=== PATIENT | male | born 1985 | race Caucasian/White ===

== ENCOUNTER 2019-05-02 10:36 | Emergency (ER) | payer SELFPAY ==
[2019-05-02 10:40] VITALS: BP 146/79; PULSE 104; RESP 16; TEMP 36.4; O2SAT 98; BMI 27.3
[2019-05-02 10:47] VITALS: O2SAT 98
--- NOTE | 2019-05-02 11:03 | W.ED.SKABFB ---
Documented by User: TIM Hernandez 05/02/19 15:01 HPI - Skin/Abscess/Foreign Bdy General: Chief complaint: Skin/Abscess/Foreign Body Stated complaint: possible abscess Time Seen by Provider: 05/02/19 10:44 History of Present Illness: HPI narrative: Patient is a 33-year-old male who comes in with possible abscess. Patient does have a history of MRSA. Skin abscess started around 2 days ago. It is in his right axillary region. It is tender to the touch and also painful when doing some arm movements. Red bump on right axillary And also has some swollen mass underneath. Denies any fever, chills, chest pain, shortness of breath, abdominal pain, nausea, vomiting, bladder or bowel symptoms. Associated symptoms: Deny chills, fever(s), nausea or vomiting Review of Systems General: Reports: 10 or more systems reviewed and unremarkable except in HPI and below Const: Denies: fever, chills or fatigue Eyes: Denies: change in vision or eye discomfort ENMT: Denies: throat pain, painful swallowing, nasal discharge or nasal congestion Card: Denies: chest pain, palpitations, edema, swelling of feet/ankles, shortness of breath on exertion or shortness of breath when lying down Resp: Denies: shortness of breath, productive cough or non-productive cough GI: Denies: abdominal pain, nausea, vomiting, diarrhea, constipation or blood in stool : Denies: flank pain, difficulty urinating, painful urination or blood in urine Musc: Denies: neck pain, back pain or extremity swelling Skin/Breast: Reports: new lesion; Denies: rash Neuro: Denies: headache, numbness in extremities or weakness in extremities Carlos/Lymph: Reports: tender lymph nodes [facility] ED PFSH: Social History Smoking and tobacco status: never smoked Physical Exam Const: COMMON NORMALS: oriented x3 HENMT: COMMON NORMALS: normocephalic HEAD & SCALP: normocephalic MOUTH: oral and palatal mucosa normal THROAT: posterior oropharynx normal and uvula midline Neck/C-Spine: COMMON NORMALS: supple GENERAL: Yes normal visual inspection Lymph: LYMPHATIC: lymphadenopathy (swollen and tender right axillary 2 cm) Resp: COMMON NORMALS: normal respiratory effort, no retractions, no use of accessory muscles and clear to auscultation bilaterally AUSCULTATION: clear to auscultation bilaterally Cardio: COMMON NORMALS: regular rate, regular rhythm, S1 normal heart sound, S2 normal heart sound, no gallops, no clicks, no murmurs and peripheral pulses 2+ throughout RATE: regular rate RHYTHM: regular rhythm HEART SOUNDS: S1 normal and S2 normal PERIPHERAL PULSES: pulses 2+ throughout GI: COMMON NORMALS: normal to inspection, nondistended, normoactive bowel sounds, soft to palpation, non-tender and no masses PALPATION: Yes soft : COMMON NORMALS: Yes no CVA tenderness BLADDER/KIDNEY EXAM: Yes no CVA tenderness Back/Pelvis: COMMON NORMALS: no CVA tenderness Neuro: COMMON NORMALS: oriented x3 and moves all extremities Skin: LESIONS: lesion noted (Erythema nodule (Boil) about 1cm in diameter.-no drainage or white head) Course ED course: Patient is a 33-year-old male who comes into the ED with possible skin abscess on right axillary. After exam patient appears to have folliculitis with some lymphadenopathy in the right axillary region as well. He has a history of MRSA. No white head or drainage currently from lesion. I discussed with the patient 2 options for treatment. First option is to drain lesions and then take antibiotics and steroids or second option is to try antibiotic and steroid and warm compresses to see if lesion will improve. Patient agreed with trying the second option first, so he is being discharged with a prescription for Bactrim and prednisone. I told him to apply warm compresses multiple times throughout the day and to return to the ED if after taking antibiotic and steroids for a couple days and symptoms do not improve or worsen. I also told him to follow up with urgent care or come back to the ED in 5-7 days no matter what to reevaluate lesion and possible infection. Patient understood and agreed with plan. Vital Signs: Vital signs: Vital Signs Temperature 97.5 F L 05/02/19 10:40 Pulse Rate 102 H 05/02/19 11:38 Respiratory Rate 18 05/02/19 11:38 Blood Pressure 135/76 05/02/19 11:38 Pulse Oximetry 96 05/02/19 11:38 Discharge Plan Discharge Patient Disposition: Home, Self-Care Clinical Impression: Folliculitis of right axilla Condition: Stable Prescriptions: New Bactrim DS 800-160 mg tablet 1 tab PO DAILY 7 Days Qty: 7 RF: 0 prednisone 50 mg tablet 50 mg PO DAILY 5 Days Qty: 5 RF: 0 No Action Multiple Vitamins Tablet 1 tab PO DAILY PRN (Reason: unknown) RF: 0 Discharge Orders: Discharge Order (Routine); Ordered 05/02/19 Ordered By: Alvarado Soriano Discharge Diet: Regular Discharge Activity: Resume usual activity Patient Instructions: Cellulitis (ED), Furunculosis and Carbunculosis (ED) Activity Restrictions/Additional Instructions: Follow-up urgent care or return to the ED in 5-7 days for reevaluation. If symptoms and pain worsened after a couple days of treatment on antibiotic and steroid please return to the ED for reevaluation. Full course of antibiotic and steroid as prescribed. Apply warm compresses on. Discharge Date/Time: 05/02/19 11:39 Coding Level of Care Code ED Reverse Engineer for Chg Fwd Exam Comprehensive Documented by User: Darshan Koenig DO 05/02/19 15:23 HPI - Skin/Abscess/Foreign Bdy General: Chief complaint: Skin/Abscess/Foreign Body Stated complaint: possible abscess Time Seen by Provider: 05/02/19 10:44 [facility] ED PFSH: Social History Smoking and tobacco status: never smoked Course ED course: I supervised care provided to Jose Irvinhn by the [employer]OR[employer]/PA. Vital Signs: Vital signs: Vital Signs Temperature 97.5 F L 05/02/19 10:40 Pulse Rate 102 H 05/02/19 11:38 Respiratory Rate 18 05/02/19 11:38 Blood Pressure 135/76 05/02/19 11:38 Pulse Oximetry 96 05/02/19 11:38 Discharge Plan Discharge Patient Disposition: Home, Self-Care Clinical Impression: Folliculitis of right axilla Condition: Stable Prescriptions: New Bactrim DS 800-160 mg tablet 1 tab PO DAILY 7 Days Qty: 7 RF: 0 prednisone 50 mg tablet 50 mg PO DAILY 5 Days Qty: 5 RF: 0 No Action Multiple Vitamins Tablet 1 tab PO DAILY PRN (Reason: unknown) RF: 0 Discharge Orders: Discharge Order (Routine); Ordered 05/02/19 Ordered By: Alvarado Soriano Discharge Diet: Regular Discharge Activity: Resume usual activity Patient Instructions: Cellulitis (ED), Furunculosis and Carbunculosis (ED) Activity Restrictions/Additional Instructions: Follow-up urgent care or return to the ED in 5-7 days for reevaluation. If symptoms and pain worsened after a couple days of treatment on antibiotic and steroid please return to the ED for reevaluation. Full course of antibiotic and steroid as prescribed. Apply warm compresses on. Discharge Date/Time: 05/02/19 11:39 Coding Level of Care Code ED Reverse Engineer for Meka [place] Exam Comprehensive
[2019-05-02] MEDS: HYDROcodone-acetaminophen 7.5-325 mg Tablet 1 TAB PO (11:09)
[2019-05-02 11:38] VITALS: BP 135/76; PULSE 102; RESP 18; O2SAT 96
== END 2019-05-02 11:39 | disposition home or self-care (01) ==
PROVIDERS: Emergency Provider Physician Assistant
DX: L73.9 Follicular disorder, unspecified (principal); Z86.14 Personal history of Methicillin resistant Staphylococcus aureus infection
CPT/HCPCS: 99282

== ENCOUNTER 2020-08-18 22:14 | Emergency (ER) | payer OTHER, SELFPAY ==
--- NOTE | 2020-08-18 22:20 | XRR_ITS ---
PROCEDURE INFORMATION: Exam: XR Left Ankle Exam date and time: 08/18/2020 10:34 PM Age: 34 years old Clinical indication: Patient HX: Left ankle throbbing pain, rolled it at work stepping off ledge. TECHNIQUE: Imaging protocol: XR Left ankle. Views: 3 or more views. COMPARISON: No relevant prior studies available. FINDINGS: Bones/joints: Normal. Soft tissues: Soft tissue swelling. XR/XR ankle LT min 3V* [id number] IMPRESSION: No acute osseous abnormality
[2020-08-18 22:47] VITALS: BP 142/87; PULSE 88; RESP 15; TEMP 36.8; O2SAT 98; BMI 26.6
--- NOTE | 2020-08-18 23:21 | ED_ITS ---
HPI - Extremity Problem General: Chief complaint: Extremity Injury, Lower Stated complaint: L ankle swollen, bruised, pain Time Seen by Provider: 08/18/20 23:16 History of Present Illness: HPI Narrative: Patient is a 34-year-old male comes to the ED with left ankle injury. Patient says he was at work and carrying some boxes and stepped down from some steps and rolled his left ankle. Patient says he took some ibuprofen just prior to arrival to help with pain. He says his left ankle hurts whenever he puts weight on it. He has some swelling in left ankle as well. Patient has a history of ankle sprains. Associated symptoms: Deny chest pain, fever(s) or rash Review of Systems Const: Denies: fever(s), chills or fatigue Eyes: Denies: change in vision or eye discomfort ENMT: Denies: throat pain, odynophagia, nasal discharge or nasal congestion Card: Denies: chest pain, palpitations, edema, swelling of feet/ankles, dyspnea on exertion or orthopnea Resp: Denies: dyspnea, productive cough or non-productive cough GI: Denies: abdominal pain, nausea, vomiting, diarrhea, constipation or hematochezia : Denies: flank pain, difficulty urinating, dysuria or hematuria Musc: Reports: extremity pain (Left ankle) and extremity swelling (Left ankle); Denies: neck pain or back pain Skin/Breast: Denies: rash or new lesions Neuro: Denies: headache(s), numbness in extremities or weakness in extremities PFS ED PFSH: Social History Smoking and tobacco status: never smoked Physical Exam Const: COMMON NORMALS: no acute distress, patient oriented x3, healthy appearing and alert GENERAL APPEARANCE: cooperative and comfortable HENMT: COMMON NORMALS: normocephalic HEAD & SCALP: normocephalic MOUTH: Normal oral and palatal mucosa present THROAT: posterior oropharynx normal and uvula midline Neck/C-Spine: COMMON NORMALS: supple GENERAL: Yes normal visual inspection Resp: COMMON NORMALS: normal respiratory effort, No retractions, No use of accessory muscles and clear to auscultation bilaterally AUSCULTATION: clear to auscultation bilaterally Cardio: COMMON NORMALS: regular rate, regular rhythm, S1 normal heart sound present, S2 normal heart sound present, No gallops present (Cardio), No clicks present (Cardio), No murmurs present (Cardio) and Peripheral pulses 2+ throughout RATE: regular rate RHYTHM: regular rhythm HEART SOUNDS: S1 normal heart sound present and S2 normal heart sound present PERIPHERAL PULSES: Peripheral pulses 2+ throughout GI: COMMON NORMALS: Normal to inspection, nondistended, normoactive bowel sounds present, Soft to palpation, non-tender and no masses PALPATION: Yes Soft to palpation : COMMON NORMALS: Yes no CVA tenderness BLADDER/KIDNEY EXAM: Yes no CVA tenderness Back/Pelvis: COMMON NORMALS: no CVA tenderness Extremity: GENERAL: Yes normal exam except as noted LEFT LOWER EXTREMITY: Yes ankle joint Left ankle: Yes inspection (No visible deformity. Mild swelling. No ecchymosis noted.), Yes palpation (Tenderness over lateral malleolus), Yes ROM (Limited due to pain.) and Yes neurovascular exam (Intact) Neuro: COMMON NORMALS: patient oriented x3 and moves all extremities SENSORIUM/ORIENTATION: Yes alert Skin: GENERAL SKIN EXAM: dry skin Course Vital Signs: Vital signs: Vital Signs Temperature 98.2 F 08/18/20 22:47 Pulse Rate 88 08/18/20 22:47 Respiratory Rate 15 08/18/20 22:47 Blood Pressure 142/87 08/18/20 22:47 Pulse Oximetry 98 08/18/20 22:47 MDM - Extremity (Nontraumatic) MDM Narrative: Medical decision making narrative: Patient is a 34-year-old male comes to the ED with left ankle injury. He has some tenderness over the anterior aspect of the lateral malleolus but there is no visible deformity seen. Mild swelling noted as well. Patient neurovascular tact. X-ray of left ankle showed no acute fractures or findings. Patient diagnosed with an ankle sprain and strain and discharged home with some crutches. Rest ice elevate and take [id number] ibuprofen for pain. Follow-up with PCP in 7 to 10 days for reevaluation. Return to ED precautions given. Patient understood agree with plan. Imaging Data^: Xray Ortho: Attestation: I personally reviewed and interpreted this imaging study as follows: Radiologist's impression: [address] [address] XRay Report Signed Patient: Jose Pandya Unit #: [id number] : 1985 Age/Sex: 34 / M ADM Date: 08/18/20 Loc: ER Room/Bed: Attending Dr: Ordering Provider/Ordering MD: Naeem Barraza MD Date of Service: 08/18/20 Procedure(s): XR ankle LT min 3V* 07306 Accession Number(s): [id number] Report Number: [id number] PROCEDURE INFORMATION: Exam: XR Left Ankle Exam date and time: 08/18/2020 10:34 PM Age: 34 years old Clinical indication: Patient HX: Left ankle throbbing pain, rolled it at work stepping off ledge. TECHNIQUE: Imaging protocol: XR Left ankle. Views: 3 or more views. COMPARISON: No relevant prior studies available. FINDINGS: Bones/joints: Normal. Soft tissues: Soft tissue swelling. XR/XR ankle LT min 3V* [id number] IMPRESSION: No acute osseous abnormality Dictated By: Matt Mahmood Signed By: Matt Mahmood Signed Date/Time: 08/18/202313 DD/ 12 Discharge Plan Discharge Patient Disposition: Home Clinical Impression: Ankle sprain and strain Condition: Stable Prescriptions: No Action Multiple Vitamins Tablet 1 tab PO DAILY PRN (Reason: unknown) RF: 0 Discharge Orders: Discharge ED (Routine); Ordered 08/18/20 Ordered By: Alvarado Soriano Discharge Diet: Regular Discharge Activity: Limit activity as instructed and Use walker/crutches as instructed Patient Instructions: Ankle Sprain (ED), Ankle Exercises (GEN) Activity Restrictions/Additional Instructions: Follow-up with medical provider as directed in 7 to 10 days reevaluation. Use crutches for the next 2 to 3 days and limit weightbearing. After 2 to 3 days start advancing weightbearing and do range of motion exercises. Rest, ice and elevate left ankle. Take [id number] ibuprofen or Tylenol for pain. Take medications as prescribed. Return to the ER or your medical provider if condition worsens. Please read and understand discharge instructions. Thank you for choosing [facility] for your healthcare needs today. Please realize this is an emergency room and that we are providing you with a medical screening exam and this may not be complete and all inclusive of all the testing and or work up that you may need to determine your ailment or severity of your illness. It is very important that you follow up as instructed or that you return to the Emergency Department should you have concerns or if your condition changes or worsens in any way. Stand Alone Forms: Work/School Release Coding Level of Care Code ED Home Security Alarm Installer for Meka [place] Exam Comprehensive
== END 2020-08-18 23:50 | disposition home or self-care (01) ==
PROVIDERS: Emergency Provider Physician Assistant
DX: S93.402A Sprain of unspecified ligament of left ankle, initial encounter (principal); S96.912A Strain of unspecified muscle and tendon at ankle and foot level, left foot, initial encounter; X50.1XXA Overexertion from prolonged static or awkward postures, initial encounter; Y99.0 Civilian activity done for income or pay
CPT/HCPCS: 73610; 99283; E0114

== ENCOUNTER → 2020-11-17 11:29 | Outpatient (BNVA) | payer OTHER, SELFPAY | PROVIDERS: Visit Provider Nurse Practitioner Family | DX: Z20.822 Contact with and (suspected) exposure to COVID-19 (principal); J06.9 Acute upper respiratory infection, unspecified | CPT/HCPCS: 87635 ==

== ENCOUNTER 2021-01-24 21:04 | Emergency (ER) | payer SELFPAY ==
[2021-01-24 21:30] VITALS: BP 122/79; PULSE 99; RESP 16; TEMP 36.9; O2SAT 96; BMI 28.1
--- NOTE | 2021-01-24 21:48 | ED_ITS ---
HPI - Extremity Problem General: Chief complaint: Extremity Problem,Nontraumatic Stated complaint: bite to R leg Time Seen by Provider: 01/24/21 21:48 History of Present Illness: HPI Narrative: 35-year-old male patient comes in today with a possible insect bite with to the right lower leg. Patient reports noticing it this morning but it was unremarkable. But throughout the day it has become tender and painful with increasing redness. Patient appears well. Patient appears no acute distress. Patient denies any diabetes. Review of Systems General: Reports: 10 or more systems reviewed and unremarkable except in HPI and below Skin/Breast: Reports: changing lesions [facility] ED PFSH: Social History Smoking and tobacco status: never smoked Physical Exam Const: COMMON NORMALS: no acute distress and patient oriented x3 GENERAL APPEARANCE: cooperative HENMT: COMMON NORMALS: normocephalic HEAD & SCALP: normal to inspection and normocephalic Eye: GENERAL EYE: appearance normal, both eyes and all related structures Neck/C-Spine: COMMON NORMALS: full ROM Chest: COMMONS NORMALS: normal inspection of the chest Resp: COMMON NORMALS: normal respiratory effort EFFORT & INSPECTION: Yes able to speak in complete sentences Cardio: COMMON NORMALS: regular rate and regular rhythm RATE: regular rate RHYTHM: regular rhythm GI: COMMON NORMALS: non-tender Extremity: COMMON NORMALS: normal to inspection Neuro: COMMON NORMALS: patient oriented x3 and moves all extremities Psych: COMMON NORMALS: mental status grossly normal and cooperative Skin: NARRATIVE SKIN EXAM: To the right lower lateral leg there is a punctate dry lesion with 4 cm surrounding erythema. No fluctuant masses noted. Induration of the central tissue is noted approximately 1 cm surrounding lesion. Course Vital Signs: Vital signs: Vital Signs Temperature 98.5 F 01/24/21 21:30 Pulse Rate 99 01/24/21 21:30 Respiratory Rate 16 01/24/21 21:30 Blood Pressure 122/79 01/24/21 21:30 Pulse Oximetry 96 01/24/21 21:30 MDM - Extremity (Nontraumatic) MDM Narrative: Medical decision making narrative: Patient presents with a lesion to the right lower leg that has become painful and reddened. On exam we note a 4 cm area of redness with some central induration and a punctate lesion to the right lower lateral leg. Vital signs are normal. Differential diagnosis includes but not limited to localized reaction to insect bite, infected wound, folliculitis. Patient works in the local [employer] which has increased risk for MRSA infections. We will treat patient with Bactrim DS 1 tablet twice a day for 7 days, and also placed on some mupirocin ointment to apply to the lesion. Suspect a possible insect bite or hair follicle that has become infected. Discharge Plan Discharge Patient Disposition: Home Clinical Impression: Infected insect bite Qualifiers: Encounter type: initial encounter Qualified Code(s): W57.XXXA - Bitten or stung by nonvenomous insect and other nonvenomous arthropods, initial encounter Condition: Stable Prescriptions: New mupirocin 2 % ointment 1 applic topical BID Qty: 22 RF: 0 Bactrim DS 800-160 mg tablet 1 tab PO Q12H 7 Days Qty: 14 RF: 0 No Action Multiple Vitamins Tablet 1 tab PO DAILY PRN (Reason: unknown) RF: 0 Discharge Orders: Discharge ED (Routine); Ordered 01/24/21 Ordered By: Ranjan Joe Discharge Diet: Usual diet Discharge Activity: Increase activity as tolerated Patient Instructions: Wound Infection (ED), Opioid Safety Activity Restrictions/Additional Instructions: Clean wound twice daily with mild soap and water. Apply antibiotic ointment and cover. Use warm moist packs to the area for comfort. Use acetaminophen and ibuprofen for pain. Take antibiotic sulfamethoxazole trimethoprim 1 tablet 2 times daily for the next 7 days. Try to keep the leg up as much as possible over the next 2 days. Follow-up with primary care as needed. Return to the ER for worsening symptoms or new concerns. Stand Alone Forms: Work/School Release Coding Level of Care Code ED Environmental Services Specialist for Meka [place]
[2021-01-24] MEDS: sulfamethoxazole-trimeth DS 160-800 mg Tablet 1 TAB PO (22:00)
[2021-01-24] MEDS: mupirocin oint 22 gm 1 APPLIC TOPICAL (22:00)
== END 2021-01-24 22:10 | disposition home or self-care (01) ==
PROVIDERS: Emergency Provider Nurse Practitioner Family
DX: S80.861A Insect bite (nonvenomous), right lower leg, initial encounter (principal); B96.89 Other specified bacterial agents as the cause of diseases classified elsewhere; W57.XXXA Bitten or stung by nonvenomous insect and other nonvenomous arthropods, initial encounter
CPT/HCPCS: 99283

== ENCOUNTER 2021-04-07 12:57 | Observation (INO) | payer OTHER, MEDICAID, SELFPAY ==
[2021-04-07] VITALS (9 sets, daily range): BP systolic 124–173; BP diastolic 65–91; PULSE 82–96; RESP 12–18; TEMP 36.7; O2SAT 97–99; BMI 27.3
--- NOTE | 2021-04-07 13:37 | ECG_ITS ---
[facility] Test Date: 2021-04-07 Pat Name: Jose Pandya Department: Room: Gender: Male [employer] Counselor: : 1985 Requested By: Eliana Velasco Order Number: [id number] Lety MD: Hailey Tovar M.D. Measurements Intervals [place] Rate: 74 P: 45 [place]: 104 QRS: -7 QRSD: 138 T: 133 QT: 400 QTc: 446 Interpretive Statements SINUS RHYTHM WITH SHORT [place] INTERVAL VENTRICULAR PREEXCITATION / WPW CRITICAL TEST RESULT INTERPRETATION BASED ON A DEFAULT AGE OF 40 YEARS No previous ECG available for comparison Electronically Signed On 04-08-2021 14:11:44 POLICY SPECIALIST by Hailey Tovar M.D. [id number]
--- NOTE | 2021-04-07 13:40 | PC.NURSE ---
REPORT TO [place] ON TELE
--- NOTE | 2021-04-07 14:31 | PC.NURSE ---
PT IS ON CONTINUOUS SPO2, NIBP, AND CM
--- NOTE | 2021-04-07 14:35 | W.ED.SYNCOPE ---
HPI - Syncope General: Chief Complaint: ER Hold Stated Complaint: Passed last night and hasnt felt the same Time Seen by Provider: 04/07/21 13:37 Source: patient Mode of arrival: ambulatory History of Present Illness: HPI narrative: 35-year-old previously healthy male had a syncopal episode last night, witnessed by his parents. He had drank 1-2 alcoholic beverages, and went to go walk outside. Suddenly started to feel dizzy and lightheaded, he started to walk back into the house to tell his parents, and then collapsed on the floor in front of them. Regained consciousness about 10 seconds later per the father. He had a posterior headache following the episode, but otherwise felt ok. He did not have any associated chest pain, palpitations, shortness of breath, nausea. This morning he woke up, felt hungover , still with a mild posterior headache. He had recurrent symptoms when he was getting into his truck this morning. He slid down onto the ground and sat against his truck for a few minutes and did not lose consciousness. He remembers that whole event, and denies any palpitations, chest pain, or shortness of breath during that period of time. He is not on any medications, and has not taken any OTC medications recently Drinks alcohol only occasionally. No recent trauma. No history of syncope prior to this. Associated symptoms: Reports headache(s) and lightheadedness; Deny chest pain, fever(s), nausea or vertigo Review of Systems General: Reports: 10 or more systems reviewed and unremarkable except in HPI and below Const: Reports: change in appetite and malaise; Denies: fever(s), chills, body aches or diaphoresis Eyes: Reports: blurry vision (Prior to syncopal episode); Denies: change in vision ENMT: Reports: nasal congestion; Denies: ear or mastoid pain, tinnitus, disequilibrium or nasal discharge Card: Reports: lightheadedness, syncope and pre-syncope; Denies: chest pain, palpitations, irregular heart rhythm or dyspnea on exertion Resp: Denies: dyspnea, productive cough or non-productive cough GI: Denies: nausea or vomiting Musc: Reports: neck pain; Denies: limited range of motion, muscle cramps or muscle weakness Skin/Breast: Denies: rash, pruritus or erythema Neuro: Reports: headache(s); Denies: numbness in extremities, weakness in extremities, sensory changes, difficulty walking, vertigo, confusion, Slurred speech present or difficulty communicating thoughts Psych: Denies: memory loss Carlos/Lymph: Denies: easy bruising or easy bleeding PFS ED PFSH: Medical History (Updated 04/07/21 @ 20:37 by Hailey Tovar MD) No pertinent past medical history Surgical History (Updated 04/07/21 @ 17:32 by Israel Molina MD) No pertinent past surgical history Family History (Updated 04/07/21 @ 17:32 by Israel Molina MD) Mother Stroke Social History (Updated 04/07/21 @ 17:33 by Israel Molina MD) Smoking and tobacco status: never smoked Alcohol intake: current Alcohol intake frequency: few times a week Substance/Drug Use: never Physical Exam Const: COMMON NORMALS: no acute distress, average body habitus, patient oriented x3 and healthy appearing GENERAL APPEARANCE: cooperative, comfortable and well developed HENMT: COMMON NORMALS: normocephalic and atraumatic HEAD & SCALP: normocephalic and atraumatic FACE & SINUS: normal facial exam and face symmetric MOUTH: Normal oral and palatal mucosa present Eye: COMMON NORMALS: Equal, round and reactive pupils present, EOMs intact bilaterally, conjunctivae normal and no scleral icterus GENERAL EYE: appearance normal, both eyes and all related structures VISUAL ACUITY: Yes acuity normal ALIGNMENT: Yes alignment normal CONJUNCTIVA: Yes conjunctivae normal PUPIL: Yes Equal, round and reactive pupils present Neck/C-Spine: COMMON NORMALS: full ROM and supple CERVICAL SPINE: No pain with cervical ROM, No Cervical spine tenderness, No Paracervical muscle tenderness, No Paracervical spasm and No Trapezius muscle tenderness Resp: COMMON NORMALS: normal respiratory effort and No use of accessory muscles EFFORT & INSPECTION: Yes able to speak in complete sentences Cardio: COMMON NORMALS: regular rate, regular rhythm, S1 normal heart sound present, S2 normal heart sound present and Peripheral pulses 2+ throughout JUGULAR VENOUS DISTENTION: no JVD RATE: regular rate RHYTHM: regular rhythm HEART SOUNDS: S1 normal heart sound present, S2 normal heart sound present and no murmurs PERIPHERAL PULSES: Peripheral pulses 2+ throughout GI: COMMON NORMALS: Normal to inspection, nondistended, normoactive bowel sounds present, Soft to palpation and non-tender PALPATION: Yes Soft to palpation Extremity: COMMON NORMALS: normal to inspection, full ROM and capillary refill normal Neuro: COMMON NORMALS: patient oriented x3 and no focal motor deficits SPEECH: speech normal GAIT: Yes Normal gait present Psych: COMMON NORMALS: mental status grossly normal, Normal thought process present, cooperative, normal affect and speech normal SPEECH: Yes normal speech THOUGHT PROCESS: Normal thought process present Skin: COMMON NORMALS: no rashes or lesions noted, turgor normal, no jaundice and no petechiae GENERAL SKIN EXAM: no rashes or lesions noted and turgor normal Course Consultations: Consultation #1: Cardiology: Dr Tovar Time: 16:20 Vital Signs: Vital signs: Vital Signs Temperature 98.1 F 04/07/21 13:27 Pulse Rate 89 04/07/21 19:40 Respiratory Rate 14 04/07/21 19:40 Blood Pressure 154/86 04/07/21 19:40 Pulse Oximetry 98 04/07/21 19:40 MDM - Syncope MDM Narrative: Medical decision making narrative: 35-year-old male with new onset syncope, occuring twice since last night. Preceeding symptoms included lightheadedness, generalized weakness, and blurred vision. Well-appearing on exam, blood pressures slightly elevated, heart rate regular. 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 At some point his QRS complexes normalized on the monitor, confirmed on repeat EKG. No observed tachyarrhythmias while on continuous cardiac monitoring here in the ED. CBC and electrolytes all wnl. CT head negative for acute process. Tox screen negative Consulted with Dr. Tovar, knockout machine operator, he recommended 24-hour observation on continuous cardiac monitoring. Echocardiogram ordered. No other interventions at this time since he is in NSR and hemodynamically stable. He will evaluate the patient upon admission.. [facility] Differential Diagnosis: Syncope differential diagnosis: Likely syncope due to orthostatic hypotension, vasovagal syncope, complete atrioventricular block and dehydration Medical Records: Attestation: I reviewed the patient's medical records. Lab Data: Attestation: I reviewed the patient's lab results. Labs: Lab Results 04/07/21 04/07/21 04/07/21 14:36 14:36 14:36 WBC 11.7 10^3/uL H 10 ^3/uL (4.0-10.0) RBC 5.30 10^6/uL 10^6 /uL (4.1-5.3) Hgb 16.3 g/dL g/dL (11.7-16.6) Hct 45.8 % % (42.0-52.0) MCV 86.4 fl fl (80-94) MCH 30.8 pg pg (28.0-34.0) MCHC 35.6 g/dL g/dL (30.0-36.0) RDW 13.1 % % (12.1-15.1) Plt Count 332 10^3/cmm 10^3 /cmm (130-400) MPV 10.0 fL fL (7.4-10.4) Neut % (Auto) 68.2 % % Lymph % (Auto) 21.1 % % [place] % (Auto) 8.6 % % Eos % (Auto) 1.2 % % Baso % (Auto) 0.6 % % Neut # (Auto) 7.99 10^3/uL H 10 ^3/uL (1.8-7.7) Lymph # (Auto) 2.5 10^3/uL 10^3/ uL (0.8-4.8) [place] # (Auto) 1.0 10^3/uL H 10^ 3/uL (0.2-0.9) Eos # (Auto) 0.1 10^3/uL 10^3/ uL (0.0-0.8) Baso # (Auto) 0.1 10^3/uL 10^3/ uL (0.0-0.1) Nucleated RBC % (a uto) 0 % % Nucleated RBCs # 0.0 /100WBC /100W BC Sodium 136 mmol/L mmol/L (136-145) Potassium 4.1 mmol/L mmol/L (3.5-5.1) Chloride 97 mmol/L L mmol/ L (98-107) Carbon Dioxide 24 mmol/L mmol/L (22-29) Anion Gap 19.1 H (5-19) BUN 12 mg/dL mg/dL (6-20) Creatinine 0.8 mg/dL mg/dL (0.7-1.2) GFR Calculation 110.0 mL/min mL/m in (90-130) Glucose 70 mg/dL mg/dL (65-115) Calculated Osmolal ity 280 mOsm/kg L mOs m/kg (285-295) Calcium 9.1 mg/dL mg/dL (8.5-10.5) Magnesium 2.0 mg/dL mg/dL (1.7-2.3) Total Bilirubin 0.5 mg/dL mg/dL (0.15-1.2) AST 23 U/L U/L (0-40) ALT 35 U/L U/L (0-41) Alkaline Phosphata se 106 IU/L IU/L (40-130) Total Protein 7.8 g/dL g/dL (6.6-8.7) Albumin 4.9 g/dL g/dL (3.5-5.2) Globulin 2.9 g/dL g/dL (1.3-4.6) Urine Opiates Scre en Negative ng/mL ng /mL (Negative) Ur Barbiturates Sc reen Negative ng/mL ng /mL (Negative) Ur Phencyclidine S crn Negative ng/mL ng /mL (Negative) Ur Amphetamines Sc reen Negative ng/mL ng /mL (Negative) U Benzodiazepines Scrn Negative ng/mL ng /mL (Negative) Urine Cocaine Scre en Negative ng/mL ng /mL (Negative) U Marijuana (THC) Screen Negative ng/mL ng /mL (Negative) Discharge Plan Discharge Patient Disposition: Admitted As Inpatient Admit Provider: Israel Molina Clinical Impression: Syncope and collapse, 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
--- NOTE | 2021-04-07 14:40 | USCV_ITS ---
Jose Pandya Age: 35 Gender: M : 1985 Exam Date: 04/07/2021 15:33 Ordering Phys: Eliana Velasco MD Technologist: Kylie Wu [place] [facility] [place]: WPW PASSING OUT BP: / HR: 99 Rhythm: Sinus Technical Quality: Adequate MEASUREMENTS (Male / Female) Normal Values 2D ECHO LV Diastolic Diameter PLAX 4.2 cm 4.2 - 5.9 / 3.9 - 5.3 cm LV Systolic Diameter PLAX 2.8 cm LV Chamber Size 3.6 cm IVS Diastolic Thickness 0.9 cm 0.6 - 1.0 / 0.6 - 0.9 cm IVS Systolic Thickness 1.5 cm LVPW Diastolic Thickness 1.4 cm 0.6 - 1.0 / 0.6 - 0.9 cm LVPW Systolic Thickness 1.6 cm RV Chamber Size 3.7 cm LVOT Diameter 2.0 cm LV Ejection Fraction 2D Teich 60.3 % LV Ejection Fraction MOD 2C 49.5 % LV Ejection Fraction 2C AL 51.9 % LA Diameter 3.0 cm LA Width 2.6 cm LA Height 3.0 cm RA Width 3.5 cm RA Height 3.3 cm Aorta at Sinotubular Diameter 2.8 cm M-MODE Aortic Annulus Diameter 3.6 cm LA Ao Ratio MM 0.9 MV E Point Septal Separation 0.4 cm DOPPLER AV Peak Velocity 128.0 cm/s LVOT Peak Velocity 87.0 cm/s AV Area Cont Eq vti 2.8 cm squared AV Area Cont Eq pk 2.2 cm squared MV Area PHT 4.9 cm squared Mitral E to A Ratio 1.4 MV E' Velocity 46.5 cm/s Mitral E to MV E' Ratio 8.3 Mitral E to LV E' Lateral Ratio 8.4 Mitral E to LV E' Septal Ratio 8.3 TR Peak Velocity 239.4 cm/s TR Peak Gradient 22.9 mmHg TR Mean Velocity 180.0 cm/s TR Mean Gradient 14.3 mmHg TR Velocity Time Integral 65.0 cm TV Peak E Velocity 49.0 cm/s Right Atrial Pressure 3.0 mmHg Pulmonary Artery Systolic Pressu 25.9 mmHg PV Peak Velocity 70.0 cm/s RV Acceleration Time 0.2 s RV Ejection Time 0.3 s RV AcT/ET 0.5 FINDINGS Left Ventricle Normal left ventricular size and systolic function, EF 60%. no regional wall motion abnormalities. Right Ventricle The right ventricle is normal in size and function. Right Atrium The right atrium is normal in size. Left Atrium The left atrium is normal in size. Mitral Valve No gross abnormalities noted. Aortic Valve Tricuspid aortic valve with no stenosis. Tricuspid Valve No gross abnormalities noted . Pulmonic Valve Structurally normal pulmonic valve without significant stenosis. Pericardium Normal pericardium without effusion. Aorta Normal ascending aorta dimension. CONCLUSIONS Normal left ventricular size and systolic function, EF 60%. No regional wall motion abnormalities. No gross valve abnormalities. Normal cardiac chamber sizes. No intracardiac masses. No similar previous studies are available for comparison Dr Hailey Tovar MD FACC (Electronically Signed) Final Date: 07 April 2021 18:18 S
[2021-04-07] MEDS: sodium chloride 0.9% 1,000 ML 999 ML IV (14:41)
[2021-04-07 15:01] LABS: Basophils # 0.1 10^3/uL (0.0-0.1); Basophils % 0.6 %; Eosinophils # 0.1 10^3/uL (0.0-0.8); Eosinophils % 1.2 %; Hematocrit 45.8 % (42.0-52.0); Hemoglobin 16.3 g/dL (11.7-16.6); Lymphocytes # 2.5 10^3/uL (0.8-4.8); Lymphocytes % 21.1 %; Mean Corpuscular HGB Conc 35.6 g/dL (30.0-36.0); Mean Corpuscular Hemoglobin 30.8 pg (28.0-34.0); Mean Corpuscular Volume 86.4 fl (80-94); Monocytes % 8.6 %; Neutrophils # 7.99 10^3/uL (1.8-7.7); Neutrophils % 68.2 %; Nucleated Red Blood Cells % 0 %; Platelet Count 332 10^3/cmm (130-400); Red Cell Distribution Width 13.1 % (12.1-15.1); White Blood Count 11.7 10^3/uL (4.0-10.0)
--- NOTE | 2021-04-07 15:08 | CT_ITS ---
WS: [id number] CT HEAD NONCONTRAST HISTORY: occipital GUILLAUME, recurrent syncope TECHNIQUE: Contiguous axial imaging performed through the brain in 2.5 mm imaging. Bone and soft tiss ue windows. Sagittal and coronal reformats reviewed. All CT scans at [facility] use at least one of these dose optimization techniques: automated exposure control; mA and/or kV adjustment per pa tient size (includes targeted exams where dose is matched to clinical indication); or iterative recon struction. DLP: 1016.9 mGy.cm COMPARISON: None available. No acute intracranial hemorrhage, midline shift or mass effect. No atrophy or prior infarcts or herniation. Ventricles: Normal size with no hydrocephalus. Paranasal sinuses: Mild mucoperiosteal thickening in the ethmoid and maxillary sinuses. No air-fluid levels. Mastoid air cells: Well pneumatized. Calvarium and scalp: Skull is intact with no soft tissue edema or swelling. CT/CT head wo con* [id number] IMPRESSION: Unremarkable noncontrast head CT. No acute intracranial hemorrhage or edema.
[2021-04-07 15:09] LABS: Amphetamines Screen Urine Negative (Negative); Barbiturates Screen Urine Negative (Negative); Benzodiazepines Screen Urine Negative (Negative); Cocaine Screen Urine Negative (Negative); Opiate Screen Urine Negative (Negative); PCP Screen Urine Negative (Negative); THC Screen Urine Negative (Negative)
[2021-04-07 15:25] LABS: Alanine Aminotransferase 35 U/L (0-41); Albumin Level 4.9 g/dL (3.5-5.2); Alkaline Phosphatase 106 IU/L (40-130); Anion Gap 19.1 (5-19); Aspartate Amino Transferase 23 U/L (0-40); Blood Urea Nitrogen 12 mg/dL (6-20); Calcium 9.1 mg/dL (8.5-10.5); Carbon Dioxide 24 mmol/L (22-29); Chloride 97 mmol/L (98-107); Globulin 2.9 g/dL (1.3-4.6); Glucose 70 mg/dL (65-115); Osmolality Calculated 280 mOsm/kg (285-295); Potassium 4.1 mmol/L (3.5-5.1); Sodium 136 mmol/L (136-145); Total Bilirubin 0.5 mg/dL (0.15-1.2); Total Protein 7.8 g/dL (6.6-8.7)
--- NOTE | 2021-04-07 17:25 | ECG_ITS ---
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 Measurements Intervals [place] Rate: 82 P: 42 NV: 178 QRS: 12 QRSD: 92 T: 11 QT: 362 QTc: 424 Interpretive Statements SINUS RHYTHM INTERPRETATION BASED ON A DEFAULT AGE OF 40 YEARS Compared to ECG 04/07/2021 14:28:58 Short NV interval no longer present Ventricular preexcitation no longer present Electronically Signed On 04-08-2021 14:12:38 PERFORMING ARTS TECHNICIANS by Hailey Tovar M.D. [id number]
--- NOTE | 2021-04-07 17:28 | PM.HP ---
Providers/Chief Complaint Chief Complaint: Passed last night and hasnt felt the same History of Present Illness Jose Pandya is a 35 year old male with no significant past medical history, who presents [facility] due to 2 syncopal episodes. Patient has been that yesterday evening, he just finished watching a billiard game with his family, they were returning home, he dropped off his family at home, he was walking out the door when the cold air hit him and he did not feel well, he came back indoors and told his family members that he was not feeling well, then he dropped down to the ground, he was unconscious for about 10 seconds, his father said he thought he saw seizure-like episodes but is not exactly sure, no postictal confusion, did feel lightheaded before the episode, no nausea, no vomiting, no chest pain, no shortness of breath. Immediately after he was alert and awake, he had some pain in his head from the fall, and he went to sleep. He woke up in the morning, nothing on the order he had breakfast, when he was getting into his truck, with his family again he passed out for about 10 seconds, similar felt lightheaded, no significant trauma. Given his recurrent syncopal episodes he presented to [facility] for evaluation. Here in [facility], patient is EKG showed ventricular preexcitation, WPW, short CO interval, rate 74, CO interval 104 ms, QRS 138 ms, QTC 446 ms, no chest pain, palpitations, lightheaded, dizziness. CT of the head was negative for acute bleed. Hospitalist was called for admission. Denies family history of sudden cardiac . No history of smoking. No history of drug abuse. 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 Review of Systems Const: Denies: fever(s), chills, fatigue or malaise Eyes: Denies: change in vision or blurry vision ENMT: Denies: nasal congestion Card: Reports: lightheadedness and syncope; Denies: chest pain, palpitations or irregular heart rhythm Resp: Denies: dyspnea, productive cough, non-productive cough or wheezing GI: Denies: abdominal pain, nausea, vomiting, hematemesis, diarrhea, constipation, hematochezia or melena : Denies: flank pain, difficulty urinating, dysuria or urinary frequency Musc: Denies: neck pain or back pain Skin/Breast: Denies: rash Neuro: Reports: dizziness; Denies: headache(s) or vertigo Psych: Denies: anxiety or depression Endo: Denies: polyuria or polydipsia Medications/Allergies Home Medications Medication Instructions Recorded Confirmed Last Taken Type acetaminophen [Tylenol Ex Str 500 mg PO Q6H PRN 04/07/21 04/07/21 04/03/21 History Rapid Release] Allergies Allergy/AdvReac Type Severity Reaction Status Date / Time No Known Allergies Allergy Verified 04/07/21 15:02 PFSH Acute PFSH: Medical History (Updated 04/07/21 @ 17:33 by Israel Molina MD) No pertinent past medical history Surgical History (Updated 04/07/21 @ 17:32 by Israel Molina MD) No pertinent past surgical history Family History (Updated 04/07/21 @ 17:32 by Israel Molina MD) Mother Stroke Social History (Updated 04/07/21 @ 17:33 by Israel Molina MD) Smoking and tobacco status: never smoked Alcohol intake: current Alcohol intake frequency: few times a week Substance/Drug Use: never Vitals/I&O/Wt Last Vital Signs Temp 98.1 F 04/07/21 13:27 Pulse 96 04/07/21 17:03 Resp 15 04/07/21 17:03 BP 124/83 04/07/21 15:00 Pulse Ox 98 04/07/21 17:03 Weight last 48 hrs Weight 81.647 kg Physical Exam Const: COMMON NORMALS: no acute distress and patient oriented x3 GENERAL APPEARANCE: cooperative and comfortable HENMT: COMMON NORMALS: normocephalic HEAD & SCALP: normocephalic Eye: COMMON NORMALS: Equal, round and reactive pupils present, EOMs intact bilaterally and no papilledema GENERAL EYE: appearance normal, both eyes and all related structures PUPIL: Yes Equal, round and reactive pupils present DIRECT OPHTHALMOSCOPY: Yes no papilledema Neck/C-Spine: COMMON NORMALS: full ROM, no lymphadenopathy, no JVD and Thyroid normal THYROID: Thyroid normal Lymph: LYMPHATIC: no lymphadenopathy noted Resp: COMMON NORMALS: normal respiratory effort, No retractions, No use of accessory muscles and clear to auscultation bilaterally AUSCULTATION: clear to auscultation bilaterally Cardio: COMMON NORMALS: no JVD, regular rate, regular rhythm, S1 normal heart sound present, S2 normal heart sound present, No gallops present (Cardio), No clicks present (Cardio) and No murmurs present (Cardio) RATE: regular rate RHYTHM: regular rhythm HEART SOUNDS: S1 normal heart sound present and S2 normal heart sound present GI: COMMON NORMALS: Normal to inspection, nondistended, normoactive bowel sounds present, Soft to palpation, non-tender and No hepatosplenomegaly present PALPATION: Yes Soft to palpation and Yes No hepatosplenomegaly present Extremity: COMMON NORMALS: normal to inspection, full ROM and no pedal edema Neuro: COMMON NORMALS: patient oriented x3, CN's II-XII intact bilaterally, moves all extremities and no focal motor deficits Psych: COMMON NORMALS: mental status grossly normal, Normal thought process present and cooperative THOUGHT PROCESS: Normal thought process present Data : 04/07/21 14:36 04/07/21 14:36 A&P Assessment and plan (1) Syncope and collapse: - EKG showing WPW syndrome -Serial EKGs, serial troponins, -Monitor for arrhythmia events -Cardiology consulted -Likely will need event monitor on discharge -Cardiac echocardiogram -Carotid artery ultrasound -Telemetry monitoring -Full code -Lovenox for DVT prophylaxis -Neurochecks, aspiration precautions, seizure precautions Status: Acute Attestations Medical Necessity Statement*: Patient requires hospitalization for syncope and collapse, outpatient with observation Coding Level of Care Code Acute Tray Casting Machine Operator for [facility] Ludy Diagnoses Syncope and collapse R55
[2021-04-07] MEDS: famotidine 20 mg Tablet PO (17:43)
[2021-04-07] MEDS: enoxaparin 40 mg/0.4 mL Syringe SUBCUT (17:43)
[2021-04-07] MEDS: sodium chloride 0.9% 1,000 ML 75 ML IV (17:45)
--- NOTE | 2021-04-07 18:58 | PM.CONSULT ---
Providers/Reason For Consult Consulting Physician/Specialty*: MATT Tovar MD/cardiology Reason for Consult*: Patient with recurrent syncope History of Present Illness History of Present Illness Jose Pandya is a 35 year old male with no significant past medical history is being admitted to the hospital through the emergency room where he presented with the complaints of recurrent episodes of syncope/near syncope. This patient apparently has been in his baseline state of health up until midnight last night. Patient apparently had a light dinner at his parents house and then was walking out into the car to drive back home. As he was walking out, felt dizzy and weak. It was very cold outside. Because of his symptoms, he decided to come inside the house. As he got inside, he felt more dizzy and then passed out. He went completely passed her for few seconds. As he came back to himself, was feeling weak. He had some tightness in the back of his neck. He did not have any past palpitations or chest pain. No other associated symptoms. No seizure activities. Has no fever or chills. No cough. No unusual shortness of breath. This morning he went out for breakfast. After finishing the breakfast, he was getting out and walking to his car. As he was getting ready to open the car, he got dizzy, lightheaded and almost passed out. Because his parents were around him at that time, they caught him on time and avoided a fall. According to the patient, he did not completely pass out this time. This time also, he did not have any chest pain or palpitation prior to this event or following this event. No nausea or vomiting. No other specific complaints. Many years ago while he was in the after strenuous exercise out in the [facility] [place], he had a passing out spell. At that time he was told that the episode was related to extreme heat and sweating. He never had any other episodes of passing out prior to this or following this up until yesterday. He has no history for any cardiac arrhythmia or irregular heartbeat. He was told to have a heart murmur as a teenager. But he has not had any echocardiogram or other cardiac work-up. Denies any history for hypertension or diabetes. No history for dyslipidemia. No significant family history for premature heart disease. No history for any cardiac arrhythmia in the family. Review of Systems Narrative: CONSTITUTIONAL: No fever or chills. EYES: No blurring of vision or other visual disturbances lately. ENT: No hoarseness of voice, auditory disturbances or sore throat. CARDIOVASCULAR: As mentioned above. RESPIRATORY: No significant cough. GASTROINTESTINAL: No hematemesis or melena. GENITOURINARY: No dysuria or hematuria. INTEGUMENTARY: No skin rashes or history of skin cancer. NEURO: No transient ischemic attacks or amaurosis. PSYCHIATRIC: No history of psychosis or major depression. HEMATOLOGIC: No bleeding disorders or significant anemia. ENDOCRINE: No history of polyuria or polydipsia. MUSCULOSKELETAL: No recent joint pain or swelling. ALLERGY/IMMUNOLOGY: As mentioned above. Medications/Allergies Home Medications Medication Instructions Recorded Confirmed Last Taken Type acetaminophen [Tylenol Ex Str 500 mg PO Q6H PRN 04/07/21 04/07/21 04/03/21 History Rapid Release] Allergies Allergy/AdvReac Type Severity Reaction Status Date / Time No Known Allergies Allergy Verified 04/07/21 15:02 Current Medications Generic Name Dose Route Start Last Admin Trade Name Freq PRN Reason Stop Dose Admin Enoxaparin Sodium 40 mg 04/07/21 17:30 04/07/21 17:43 Enoxaparin 40 Mg/0.4 Ml Syringe SUBCUT 40 mg Q24H NEO Administration Famotidine 20 mg 04/07/21 18:00 04/07/21 17:43 Famotidine 20 Mg Tablet PO 20 mg BID NEO Administration Sodium Chloride 1,000 mls @ 75 mls/hr 04/07/21 17:30 04/07/21 17:45 Sodium Chloride 0.9% IV 75 mls/hr .[id number] NEO Administration PFSH Acute PFSH: Medical History (Updated 04/07/21 @ 20:37 by Hailey Tovar MD) No pertinent past medical history Surgical History (Updated 04/07/21 @ 17:32 by Israel Molina MD) No pertinent past surgical history Family History (Updated 04/07/21 @ 17:32 by Israel Molina MD) Mother Stroke Social History (Updated 04/07/21 @ 17:33 by Israel Molina MD) Smoking and tobacco status: never smoked Alcohol intake: current Alcohol intake frequency: few times a week Substance/Drug Use: never Vitals/I&O/Wt Last Vital Signs Temp 98.1 F 04/07/21 13:27 Pulse 83 04/07/21 17:48 Resp 16 04/07/21 17:48 BP 147/91 04/07/21 17:48 Pulse Ox 98 04/07/21 17:48 Weight last 48 hrs Weight 180 lb Physical Exam Narrative: EXAM NARRATIVE: GENERAL: The patient is alert and oriented times three. Not in any acute distress. HEENT: No significant pallor, icterus or lymphadenopathy. The pupils are reactant to light. Oral cavity: There are no mucous membrane lesions. Funduscopic examination: The disk margins appear to be sharp with no exudates or hemorrhages. NECK: Trachea appears to be central. No masses noted. No JVD or thyromegaly appreciated. No carotid bruit. RESPIRATORY: Chest is symmetrical. No intercostals muscle retraction or any accessory muscle activation. There is no chest wall tenderness. Breath sounds are heard bilaterally. No rales or rhonchi heard. No evidence of any consolidation. BREASTS: Deferred. HEART: The PMI is in the 5th left intercostals space just inside the midclavicular line. No palpable precordial events. S1 and S2 are normal. No S3 or S4 heard. No pericardial rub or any click heard. ABDOMEN: No vessel pulsations or distention. No tenderness. No organomegaly appreciated. No abdominal bruit. Bowel sounds are normally heard. : Deferred. RECTAL: Deferred. LYMPHATIC: No lymphadenopathy noted in the neck or groin. EXTREMITIES: No edema or cyanosis. No clubbing. The pulses are symmetrical bilaterally. The radial, femoral, dorsalis pedis and the posterior tibial pulses are palpated and found to be in good volume and amplitude. MUSCULOSKELETAL: No acute joint deformities or swelling SKIN: There are no significant scars or skin rash noted. NEUROPSYCHIATRIC: The patient is alert and oriented x3. Appears to be in a good mood. The higher functions are grossly within normal limits. No tremors or rigidity noted. Data Labs: Other Labs: Laboratory Last Values WBC 11.7 10^3/uL (4.0 -10.0) H 04/07/21 14:36 RBC 5.30 10^6/uL (4.1 -5.3) 04/07/21 14:36 Hgb 16.3 g/dL (11.7-1 6.6) 04/07/21 14:36 Hct 45.8 % (42.0-52.0 ) 04/07/21 14:36 MCV 86.4 fl (80-94) 04/07/21 14:36 MCH 30.8 pg (28.0-34. 0) 04/07/21 14:36 MCHC 35.6 g/dL (30.0-3 6.0) 04/07/21 14:36 RDW 13.1 % (12.1-15.1 ) 04/07/21 14:36 Plt Count 332 10^3/cmm (130 -400) 04/07/21 14:36 MPV 10.0 fL (7.4-10.4 ) 04/07/21 14:36 Neut % (Auto) 68.2 % 04/07/21 14:36 Lymph % (Auto) 21.1 % 04/07/21 14:36 [place] % (Auto) 8.6 % 04/07/21 14:36 Eos % (Auto) 1.2 % 04/07/21 14:36 Baso % (Auto) 0.6 % 04/07/21 14:36 Neut # (Auto) 7.99 10^3/uL (1.8 -7.7) H 04/07/21 14:36 Lymph # (Auto) 2.5 10^3/uL (0.8- 4.8) 04/07/21 14:36 [place] # (Auto) 1.0 10^3/uL (0.2- 0.9) H 04/07/21 14:36 Eos # (Auto) 0.1 10^3/uL (0.0- 0.8) 04/07/21 14:36 Baso # (Auto) 0.1 10^3/uL (0.0- 0.1) 04/07/21 14:36 Nucleated RBC % (a uto) 0 % 04/07/21 14:36 Nucleated RBCs # 0.0 /100WBC 04/07/21 14:36 Sodium 136 mmol/L (136-1 45) 04/07/21 14:36 Potassium 4.1 mmol/L (3.5-5 .1) 04/07/21 14:36 Chloride 97 mmol/L (98-107 ) L 04/07/21 14:36 Carbon Dioxide 24 mmol/L (22-29) 04/07/21 14:36 Anion Gap 19.1 (5-19) H 04/07/21 14:36 BUN 12 mg/dL (6-20) 04/07/21 14:36 Creatinine 0.8 mg/dL (0.7-1. 2) 04/07/21 14:36 GFR Calculation 110.0 mL/min (90- 130) 04/07/21 14:36 Glucose 70 mg/dL (65-115) 04/07/21 14:36 Calculated Osmolal ity 280 mOsm/kg (285- 295) L 04/07/21 14:36 Calcium 9.1 mg/dL (8.5-10 .5) 04/07/21 14:36 Magnesium 2.0 mg/dL (1.7-2. 3) 04/07/21 14:36 Total Bilirubin 0.5 mg/dL (0.15-1 .2) 04/07/21 14:36 AST 23 U/L (0-40) 04/07/21 14:36 ALT 35 U/L (0-41) 04/07/21 14:36 Alkaline Phosphata se 106 IU/L (40-130) 04/07/21 14:36 Total Protein 7.8 g/dL (6.6-8.7 ) 04/07/21 14:36 Albumin 4.9 g/dL (3.5-5.2 ) 04/07/21 14:36 Globulin 2.9 g/dL (1.3-4.6 ) 04/07/21 14:36 Urine Opiates Scre en Negative ng/mL (N egative) 04/07/21 14:36 Ur Barbiturates Sc reen Negative ng/mL (N egative) 04/07/21 14:36 Ur Phencyclidine S crn Negative ng/mL (N egative) 04/07/21 14:36 Ur Amphetamines Sc reen Negative ng/mL (N egative) 04/07/21 14:36 U Benzodiazepines Scrn Negative ng/mL (N egative) 04/07/21 14:36 Urine Cocaine Scre en Negative ng/mL (N egative) 04/07/21 14:36 U Marijuana (THC) Screen Negative ng/mL (N egative) 04/07/21 14:36 Imaging^: Echo: My impression: Echocardiogram from today 04/07/2021 revealed Normal left ventricular size and systolic function, EF 60%. No regional wall motion abnormalities. No gross valve abnormalities. Normal cardiac chamber sizes. No intracardiac masses. No similar previous studies are available for comparison EKG^: EKG 1: My Interpretation: Sinus rhythm with a short CA interval and delta wave, suggesting a preexcitation pattern-WPW. The negative delta wave in V1 to V3 and lead III with a positive delta in lead I and aVL could suggest a right posterolateral accessory pathway. EKG 2: My Interpretation: Normal sinus rhythm with normal CA interval and QRS duration. No evidence of preexcitation compared to the previous EKG today. A&P Assessment and plan (1) Syncope and collapse: The etiology for the recurrent syncope is not clear at this time. Possibility of a vasovagal reaction is a consideration. In view of the abnormal EKG, and WPW syndrome causing this also is a consideration. Apparently the patient has not had any palpitations prior to this event of following this event. His repeat EKG shows no evidence of preexcitation. Other etiologies cannot be excluded. I reviewed the patient echocardiogram. The LV ejection fraction is normal. No significant wall motion normalities. 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 Since the patient did not have any palpitations or chest discomfort prior to this event or following the event, it may be difficult to ascertain the etiology of the syncope. However this patient may require electrophysiology evaluation sometime down the line. Status: Acute (3) Elevated blood pressure reading: She has no history of hypertension. If he continues to have elevated blood pressure, may consider starting him on an ARB. I would avoid any AV cory blocking agents. Status: Acute Additional A&P Information This patient is to be closely monitored on telemetry for 24 hours. If he has no recurrence of the syncopal/near syncopal episode, it may be appropriate to discharge home on an event monitor to evaluate for any spontaneous arrhythmias. Also may consider sending him for electrophysiology evaluation. Thank for the opportunity to eval this patient make these recommendations Consult Attestations Medical Necessity Statement: Patient requires continued hospital stay for close monitoring and further management Coding Level of Care Code Acute Sanitation Officer for Chg Fwd History Detailed Exam Detailed Medical Decision Making High Complexity Diagnoses Syncope and collapse R55 Qeuwb-Tzigoelik-Xhpqn (WPW) pattern seen on electrocardiography I45.6 Elevated blood pressure reading R03.0
--- NOTE | 2021-04-07 19:18 | PC.NURSE ---
REPORT GIVE YOUNG BAUMAN RN ASSUMED CARE.
[2021-04-07] MEDS: losartan 50 mg Tablet 25 MG PO (22:48)
--- NOTE | 2021-04-07 23:25 | ECG_ITS ---
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 Measurements Intervals [place] Rate: 74 P: 41 CA: 117 QRS: -7 QRSD: 158 T: 132 QT: 422 QTc: 468 Interpretive Statements SINUS RHYTHM WITH SHORT CA INTERVAL VENTRICULAR PREEXCITATION / WPW CRITICAL TEST RESULT Compared to ECG 04/07/2021 16:36:58 Short CA interval now present Ventricular preexcitation now present Electronically Signed On 04-09-2021 20:07:11 PIG HANDLER by Hailey Tovar M.D. [id number]
[2021-04-08] VITALS: BP 129/63; PULSE 74; RESP 14; O2SAT 97
[2021-04-08 04:52] VITALS: BP 125/54; PULSE 55; RESP 12; O2SAT 97
[2021-04-08 07:26] LABS: Basophils # 0.1 10^3/uL (0.0-0.1); Eosinophils # 0.2 10^3/uL (0.0-0.8); Eosinophils % 3.4 %; Hematocrit 41.1 % (42.0-52.0); Hemoglobin 14.3 g/dL (11.7-16.6); Lymphocytes # 2.1 10^3/uL (0.8-4.8); Lymphocytes % 30.9 %; Mean Corpuscular HGB Conc 34.8 g/dL (30.0-36.0); Mean Corpuscular Hemoglobin 30.4 pg (28.0-34.0); Mean Corpuscular Volume 87.3 fl (80-94); Mean Platelet Volume 9.9 fL (7.4-10.4); Monocytes # 0.7 10^3/uL (0.2-0.9); Monocytes % 9.9 %; Neutrophils # 3.75 10^3/uL (1.8-7.7); Neutrophils % 54.7 %; Nucleated Red Blood Cells % 0 %; Platelet Count 268 10^3/cmm (130-400); Red Blood Count 4.71 10^6/uL (4.1-5.3); Red Cell Distribution Width 13.1 % (12.1-15.1); White Blood Count 6.9 10^3/uL (4.0-10.0)
[2021-04-08 07:38] LABS: Alanine Aminotransferase 23 U/L (0-41); Albumin Level 3.9 g/dL (3.5-5.2); Alkaline Phosphatase 90 IU/L (40-130); Anion Gap 14.8 (5-19); Aspartate Amino Transferase 17 U/L (0-40); Blood Urea Nitrogen 14 mg/dL (6-20); Calcium 8.9 mg/dL (8.5-10.5); Carbon Dioxide 23 mmol/L (22-29); Chloride 103 mmol/L (98-107); Globulin 2.5 g/dL (1.3-4.6); Glucose 89 mg/dL (65-115); Osmolality Calculated 284 mOsm/kg (285-295); Phosphorus 3.1 mg/dL (2.5-4.5); Potassium 3.8 mmol/L (3.5-5.1); Sodium 137 mmol/L (136-145); Total Bilirubin 0.5 mg/dL (0.15-1.2); Total Protein 6.4 g/dL (6.6-8.7)
[2021-04-08 07:42] LABS: INR 0.97 (0.8-1.2)
--- NOTE | 2021-04-08 09:05 | PM.PN ---
Subjective Subjective: Interval history: The patient has not had any recurrence of syncope. No significant arrhythmias were noted on the monitor. Blood pressure seems to be improving. Denies any chest pain or chest tightness. No palpitation. No new symptoms. The echocardiogram was unremarkable. Medications: Reviewed: Yes Medication Review Details: Current Medications Acetaminophen (Acetaminophen 325 Mg Tablet) 650 mg PO Q6H PRN PRN Reason: Mild/Mod Pain Or Temp >/= 101 Enoxaparin Sodium (Enoxaparin 40 Mg/0.4 Ml Syringe) 40 mg SUBCUT Q24H [facility] Last Admin: 04/07/21 17:43 Dose: 40 mg Documented by: Famotidine (Famotidine 20 Mg Tablet) 20 mg PO BID [facility] Last Admin: 04/07/21 17:43 Dose: 20 mg Documented by: Sodium Chloride (Sodium Chloride 0.9%) 1,000 mls @ 75 mls/hr IV .[id number] [facility] Last Infusion: 04/08/21 08:18 Dose: Infused Documented by: Losartan Potassium (Losartan 50 Mg Tablet) 25 mg PO DAILY [facility] Last Admin: 04/07/21 22:48 Dose: 25 mg Documented by: Naloxone HCl (Naloxone 0.4 Mg/Ml Sdv) 0.1 mg IVP Q2M PRN PRN Reason: OPIATERV Ondansetron HCl (Ondansetron 2 Mg/Ml Sdv 2 Ml) 4 mg IVP Q8H PRN PRN Reason: vomiting, or N/V if npo Vitals/I&O/Wt Last Vital Signs Temp 98.1 F 04/07/21 13:27 Pulse 55 L 04/08/21 04:52 Resp 12 04/08/21 04:52 BP 125/54 04/08/21 04:52 Pulse Ox 97 04/08/21 04:52 04/07/21 04/08/21 04/08/21 22:59 06:59 14:59 Intake Total 1000 / 1000 Balance 1000 / 1000 Weight last 48 hrs Weight 180 lb Physical Exam Narrative: EXAM NARRATIVE: GENERAL: The patient is alert and oriented times three. Not in any acute distress. HEENT: No significant pallor, icterus or lymphadenopathy. The pupils are reactant to light. Oral cavity: There are no mucous membrane lesions. NECK: Trachea appears to be central. No masses noted. No JVD or thyromegaly appreciated. No carotid bruit. RESPIRATORY: Chest is symmetrical. No intercostals muscle retraction or any accessory muscle activation. There is no chest wall tenderness. Breath sounds are heard bilaterally. No rales or rhonchi heard. No evidence of any consolidation. BREASTS: Deferred. HEART: The PMI is in the 5th left intercostals space just inside the midclavicular line. No palpable precordial events. S1 and S2 are normal. No S3 or S4 heard. No pericardial rub or any click heard. ABDOMEN: No vessel pulsations or distention. No tenderness. No organomegaly appreciated. No abdominal bruit. Bowel sounds are normally heard. : Deferred. RECTAL: Deferred. LYMPHATIC: No lymphadenopathy noted in the neck or groin. EXTREMITIES: No edema or cyanosis. No clubbing. The pulses are symmetrical bilaterally. The radial, femoral, dorsalis pedis and the posterior tibial pulses are palpated and found to be in good volume and amplitude. MUSCULOSKELETAL: No acute joint deformities or swelling SKIN: There are no significant scars or skin rash noted. NEUROPSYCHIATRIC: The patient is alert and oriented x3. Appears to be in a good mood. The higher functions are grossly within normal limits. No tremors or rigidity noted. Data : 04/08/21 07:15 04/08/21 07:15 Other Labs: Laboratory Last Values WBC 6.9 10^3/uL (4.0-10.0) 04/08/21 07:15 RBC 4.71 10^6/uL (4.1-5.3) 04/08/21 07:15 Hgb 14.3 g/dL (11.7-16.6) 04/08/21 07:15 Hct 41.1 % (42.0-52.0) L 04/08/21 07:15 MCV 87.3 fl (80-94) 04/08/21 07:15 MCH 30.4 pg (28.0-34.0) 04/08/21 07:15 MCHC 34.8 g/dL (30.0-36.0) 04/08/21 07:15 RDW 13.1 % (12.1-15.1) 04/08/21 07:15 Plt Count 268 10^3/cmm (130-400) 04/08/21 07:15 MPV 9.9 fL (7.4-10.4) 04/08/21 07:15 Neut % (Auto) 54.7 % 04/08/21 07:15 Lymph % (Auto) 30.9 % 04/08/21 07:15 [place] % (Auto) 9.9 % 04/08/21 07:15 Eos % (Auto) 3.4 % 04/08/21 07:15 Baso % (Auto) 1.0 % 04/08/21 07:15 Neut # (Auto) 3.75 10^3/uL (1.8-7.7) 04/08/21 07:15 Lymph # (Auto) 2.1 10^3/uL (0.8-4.8) 04/08/21 07:15 [place] # (Auto) 0.7 10^3/uL (0.2-0.9) 04/08/21 07:15 Eos # (Auto) 0.2 10^3/uL (0.0-0.8) 04/08/21 07:15 Baso # (Auto) 0.1 10^3/uL (0.0-0.1) 04/08/21 07:15 Nucleated RBC % (auto) 0 % 04/08/21 07:15 Nucleated RBCs # 0.0 /100WBC 04/08/21 07:15 PT 13.20 SECONDS (12.1-14.9) 04/08/21 07:15 INR 0.97 (0.8-1.2) 04/08/21 07:15 Sodium 137 mmol/L (136-145) 04/08/21 07:15 Potassium 3.8 mmol/L (3.5-5.1) 04/08/21 07:15 Chloride 103 mmol/L (98-107) 04/08/21 07:15 Carbon Dioxide 23 mmol/L (22-29) 04/08/21 07:15 Anion Gap 14.8 (5-19) 04/08/21 07:15 BUN 14 mg/dL (6-20) 04/08/21 07:15 Creatinine 0.8 mg/dL (0.7-1.2) 04/08/21 07:15 GFR Calculation 110.0 mL/min (90-130) 04/08/21 07:15 Glucose 89 mg/dL (65-115) 04/08/21 07:15 Calculated Osmolality 284 mOsm/kg (285-295) L 04/08/21 07:15 Calcium 8.9 mg/dL (8.5-10.5) 04/08/21 07:15 Phosphorus 3.1 mg/dL (2.5-4.5) 04/08/21 07:15 Magnesium 2.0 mg/dL (1.7-2.3) 04/08/21 07:15 Total Bilirubin 0.5 mg/dL (0.15-1.2) 04/08/21 07:15 AST 17 U/L (0-40) 04/08/21 07:15 ALT 23 U/L (0-41) 04/08/21 07:15 Alkaline Phosphatase 90 IU/L (40-130) 04/08/21 07:15 Total Protein 6.4 g/dL (6.6-8.7) L 04/08/21 07:15 Albumin 3.9 g/dL (3.5-5.2) 04/08/21 07:15 Globulin 2.5 g/dL (1.3-4.6) 04/08/21 07:15 Urine Opiates Screen Negative ng/mL (Negative) 04/07/21 14:36 Ur Barbiturates Screen Negative ng/mL (Negative) 04/07/21 14:36 Ur Phencyclidine Scrn Negative ng/mL (Negative) 04/07/21 14:36 Ur Amphetamines Screen Negative ng/mL (Negative) 04/07/21 14:36 U Benzodiazepines Scrn Negative ng/mL (Negative) 04/07/21 14:36 Urine Cocaine Screen Negative ng/mL (Negative) 04/07/21 14:36 U Marijuana (THC) Screen Negative ng/mL (Negative) 04/07/21 14:36 A&P Assessment and plan (1) Syncope and collapse: The etiology for the recurrent syncope is not clear at this time. Possibility of a vasovagal reaction is a consideration. In view of the abnormal EKG, and WPW syndrome causing this also is a consideration. Apparently the patient has not had any palpitations prior to this event of following this event. His repeat EKG shows no evidence of preexcitation. Other etiologies cannot be excluded. I reviewed the patient echocardiogram. The LV ejection fraction is normal. No significant wall motion normalities. 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 Since the patient did not have any palpitations or chest discomfort prior to this event or following the event, it may be difficult to ascertain the etiology of the syncope. However this patient may require electrophysiology evaluation sometime down the line. Status: Acute (3) Elevated blood pressure reading: She has no history of hypertension. If he continues to have elevated blood pressure, may consider starting him on an ARB. I would avoid any AV cory blocking agents. Status: Acute Additional A&P Information If the patient continues remain stable with no recurrence of syncope or any significant arrhythmias on the monitor, he may be discharged home today. [facility] need [facility] Saturday Also please make an appointment to be seen at the [facility] by the nurse practitioner in a week. We will make arrangements for him to be evaluated by an finger cobbler-discussed with Dr. Cruz in [place]. She is willing to see him as an outpatient Discussed the plan with the Dr. Elizabeth Attestations Medical Necessity Statement*: Possible discharge home today Coding Level of Care Code Acute Advanced Manager for Chg Fwd History Detailed Exam Detailed Medical Decision Making Moderate Complexity Diagnoses Syncope and collapse R55 Kzoax-Smizundpk-Vyhkv (WPW) pattern seen on electrocardiography I45.6 Elevated blood pressure reading R03.0
--- NOTE | 2021-04-08 09:25 | P.PN_ITS ---
Subjective Subjective: Interval history: Patient is seen to be doing well. No chest pain or shortness of breath. No other syncopal episodes since he has been here. Vitals/I&O/Wt Last Vital Signs Temp 98.1 F 04/07/21 13:27 Pulse 55 L 04/08/21 04:52 Resp 12 04/08/21 04:52 BP 125/54 04/08/21 04:52 Pulse Ox 97 04/08/21 04:52 04/07/21 04/08/21 04/08/21 22:59 06:59 14:59 Intake Total 1000 / 1000 Balance 1000 / 1000 Weight last 48 hrs Weight 180 lb Physical Exam Narrative: EXAM NARRATIVE: General: No acute distress, Alert. Well nourished. Heart: Regular rate and rhythm. No murmurs, rubs or gallops. Normal capillary refill. Lungs: Clear to auscultation. No wheezes, rhonchi or rales. Abdomen: Positive bowel sounds. Non-tender, non-distended. No hepat osplenomegaly. No gaurding. Extremities: No clubbing, cyanosis, or edema. Negative Princess's Data : 04/08/21 07:15 04/08/21 07:15 A&P Assessment and plan (1) Ofuwb-Sqxtxdfmj-Inhbj (WPW) pattern seen on electrocardiography: Seems to be the most likely cause for his syncopal episodes but not for sure. Continue to monitor him this morning. If no other episodes we will get him up and walking around and if no syncopal episodes we will proceed with discharge this afternoon. Plan for 21-day event monitor upon discharge. Close follow-up with cardiology. Status: Acute (2) Syncope and collapse: Status: Acute Attestations Medical Necessity Statement*: 35-year-old gentleman with syncopal episode most likely being discharged later today. 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
[2021-04-08 11:36] VITALS: BP 138/74
[2021-04-08] MEDS: losartan 50 mg Tablet 25 MG PO (11:36)
[2021-04-08] MEDS: famotidine 20 mg Tablet PO (11:43)
[2021-04-08 11:45] VITALS: BP 138/74; PULSE 72; RESP 14; O2SAT 94
--- NOTE | 2021-04-08 11:53 | PC.NURSE ---
Pt denies current complaints. Pt on continuous cardiac monitoring.
[2021-04-08 11:56] VITALS: BP 145/79; PULSE 87; RESP 18
--- NOTE | 2021-04-08 13:23 | PM.DCS ---
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 Cardiology consulted. suspect this may be the cause for syncope but not sure. Done well during visit with us. DC today with precautions. Getting 21 days event monitor set up with cardiology and f/u with Cardiology. Discharge Data Data Completed and Pending: Completed Studies During Hospitalization Category Date Time Status CT head wo con* [id number] Urgent Cat Scan 04/07/21 15:08 Completed CV carotid duplex BI* [id number] Urgent Ultrasound 04/08/21 17:25 Completed CV. echo complete * [id number] Routine Ultrasound 04/07/21 14:40 Completed Pending at discharge Category Date Time Status Complete Blood Co unt w/Auto AM LABS Lab 04/09/21 04:00 Ordered Complete Blood Co unt w/Auto AM LABS Lab 04/10/21 04:00 Ordered Comprehensive Met abolic Panel AM LA BS Lab 04/09/21 04:00 Ordered Comprehensive Met abolic Panel AM LA BS Lab 04/10/21 04:00 Ordered Cortisol Random S tat Lab 04/07/21 17:25 Ordered Hemoglobin A1C Ro utine Lab 04/07/21 17:25 Ordered Lipid Panel Routi ne Lab 04/07/21 17:25 Ordered Magnesium AM LABS Lab 04/09/21 04:00 Ordered Magnesium AM LABS Lab 04/10/21 04:00 Ordered NT Pro B Type Dayan riuretic Pept Stat Lab 04/07/21 17:25 Ordered Phosphorus AM LAB S Lab 04/09/21 04:00 Ordered Phosphorus AM LAB S Lab 04/10/21 04:00 Ordered Prothrombin Time INR AM LABS Lab 04/09/21 04:00 Ordered Prothrombin Time INR AM LABS Lab 04/10/21 04:00 Ordered Thyroid Stimulati ng Hormone Stat Lab 04/07/21 17:25 Ordered Troponin(5th) 2 H our. Timed Lab 04/07/21 19:25 Ordered Troponin(5th) 6 h our. Timed Lab 04/07/21 23:25 Ordered Troponin(5th) Bas amado Stat Lab 04/07/21 17:25 Ordered Labs from last 24 hours 04/08/21 04/08/21 04/08/21 07:15 07:15 07:15 WBC 6.9 RBC 4.71 Hgb 14.3 Hct 41.1 L MCV 87.3 MCH 30.4 MCHC 34.8 RDW 13.1 Plt Count 268 MPV 9.9 Neut % (Auto) 54.7 Lymph % (Auto) 30.9 [place] % (Auto) 9.9 Eos % (Auto) 3.4 Baso % (Auto) 1.0 Neut # (Auto) 3.75 Lymph # (Auto) 2.1 [place] # (Auto) 0.7 Eos # (Auto) 0.2 Baso # (Auto) 0.1 Nucleated RBC % (a uto) 0 Nucleated RBCs # 0.0 PT 13.20 INR 0.97 Sodium 137 Potassium 3.8 Chloride 103 Carbon Dioxide 23 Anion Gap 14.8 BUN 14 Creatinine 0.8 GFR Calculation 110.0 Glucose 89 Calculated Osmolal ity 284 L Calcium 8.9 Phosphorus 3.1 Magnesium 2.0 Total Bilirubin 0.5 AST 17 ALT 23 Alkaline Phosphata se 90 Total Protein 6.4 L Albumin 3.9 Globulin 2.5 Urine Opiates Scre en Ur Barbiturates Sc reen Ur Phencyclidine S crn Ur Amphetamines Sc reen U Benzodiazepines Scrn Urine Cocaine Scre en U Marijuana (THC) Screen 04/07/21 04/07/21 04/07/21 14:36 14:36 14:36 WBC 11.7 H RBC 5.30 Hgb 16.3 Hct 45.8 MCV 86.4 MCH 30.8 MCHC 35.6 RDW 13.1 Plt Count 332 MPV 10.0 Neut % (Auto) 68.2 Lymph % (Auto) 21.1 [place] % (Auto) 8.6 Eos % (Auto) 1.2 Baso % (Auto) 0.6 Neut # (Auto) 7.99 H Lymph # (Auto) 2.5 [place] # (Auto) 1.0 H Eos # (Auto) 0.1 Baso # (Auto) 0.1 Nucleated RBC % (a uto) 0 Nucleated RBCs # 0.0 PT INR Sodium 136 Potassium 4.1 Chloride 97 L Carbon Dioxide 24 Anion Gap 19.1 H BUN 12 Creatinine 0.8 GFR Calculation 110.0 Glucose 70 Calculated Osmolal ity 280 L Calcium 9.1 Phosphorus Magnesium 2.0 Total Bilirubin 0.5 AST 23 ALT 35 Alkaline Phosphata se 106 Total Protein 7.8 Albumin 4.9 Globulin 2.9 Urine Opiates Scre en Negative Ur Barbiturates Sc reen Negative Ur Phencyclidine S crn Negative Ur Amphetamines Sc reen Negative U Benzodiazepines Scrn Negative Urine Cocaine Scre en Negative U Marijuana (THC) Screen Negative Vitals: Last Vital Signs Temp 98.1 F 04/07/21 13:27 Pulse 87 04/08/21 11:56 Resp 18 04/08/21 11:56 BP 145/79 04/08/21 11:56 Pulse Ox 94 04/08/21 11:45 Discharge Plan Discharge Patient Disposition: Home Condition: Stable Prescriptions: New losartan 50 mg Tablet 25 mg PO DAILY Qty: 30 RF: 0 No Action Tylenol Ex Str Rapid Release 500 mg Tablet 500 mg PO Q6H PRN (Reason: Pain) RF: 0 Discharge Orders: Discharge Order (Routine); Ordered 04/08/21 Ordered By: Tyree Elizabeth Other Ambulatory Orders: MCT/Event Monitor 21 Days (Routine) Timeframe: 2 Days Facility: [facility] - Location: Radiology Ordered By: Tyree Elizabeth Referrals: Hailey Tovar MD [Physician] - 4-7 days Discharge Diet: Usual diet Discharge Activity: Resume usual activity Patient Instructions: Opioid Safety Activity Restrictions/Additional Instructions: You should be getting set up for a 21 day awake overnight monitor. You should also have a follow up appointment with Dr. Tovar in the next 1-2 weeks. If you are having problems with either of these please call Dr. Elizabeth's office at [phone]. 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
[2021-04-08 14:06] VITALS: BP 147/69; PULSE 83; RESP 16
--- NOTE | 2021-04-08 17:25 | USCV_ITS ---
Jose Pandya Age: 35 Gender: M : 1985 Exam Date: 04/08/2021 08:17 Ordering Phys: Israel Molina MD Technologist: Garima Smith Exam Location: [facility] [place] Indication: Syncope Risk Factors: Previous Vascular Surgery: Right Brachial BP: / Left Brachial BP: / Right Left Velocity (cm/s) Spectral Plaque Velocity (cm/s) Spectral Plaque Syst/Diast Broadening Syst/Diast Broadening 125.70/16.50 Prox CCA 149.90/ 15.80 118.00/15.40 Mid CCA 144.60/ 17.10 104.70/20.90 Distal CCA 136.70/ 18.40 97.30/ 22.30 Prox ICA 93.30 / 19.70 88.10/ 27.60 Mid ICA 135.20/ 23.30 97.30/ 32.90 Distal ICA 97.90 / 29.50 102.50 ECA 126.20 0.93 ICA/CCA 0.99 Antegrade Vertebral Antegrade 61.80/ 11.80 cm/s 72.30/ 17.10 cm/s Tri Subclavian Tri 99.90 149.3 0 FINDINGS Comparison: none available. See measurements listed above. Intimal thickening at the bifurcations bilaterally No unstable plaques Normal Doppler flow velocities Antegrade vertebral flows bilaterally CONCLUSIONS Minimal intimal thickening at the bifurcations bilaterally. No unstable plaques or any significant stenotic lesions, based on the above finding Dr Hailey Tovar MD [facility] (Electronically Signed) Final Date: 08 April 2021 11:53 S
--- NOTE | 2021-04-11 16:55 | PC.SOCIAL ---
Verified with [facility] that quality assurance monitor body was placed today.
== END 2021-04-08 14:06 | disposition home or self-care (01) ==
LOC: ER 19:12 → ER IP 20:52
PROVIDERS: Admitting Provider Family Medicine; Emergency Provider Family Medicine; Visit Provider Family Medicine
DX: R55 Syncope and collapse (principal); I45.6 Pre-excitation syndrome; R03.0 Elevated blood-pressure reading, without diagnosis of hypertension; Z82.3 Family history of stroke
CPT/HCPCS: 12345; 36415; 70450; 80053; 80306; 83735; 84100; 85025; 85610; 93005; 93306; 93880; 96372; G0378; J1650; J7030

== ENCOUNTER 2021-06-05 13:06 | Emergency (ER) | payer OTHER, SELFPAY ==
[2021-06-05 13:21] VITALS: BP 128/84; PULSE 89; RESP 16; TEMP 36.7; O2SAT 96; BMI 27.3
--- NOTE | 2021-06-05 13:27 | ED_ITS ---
HPI - Back Pain/Injury General: Chief Complaint: Back Pain/Injury Stated Complaint: Severe lower back pain, numb rt leg Time Seen by Provider: 06/05/21 13:26 Source: patient Mode of arrival: ambulatory Limitations: no limitations History of Present Illness: Patient is a 35-year-old male who presents to ED today with a complaint of lower back pain. Patient states he has had intermittent lower back pains from us to decades stemming from injuries involved while in the . Patient states over the past several days he has had a flare of his lower back pain and is now experiencing intermittent radicular type pains to his right lower extremity (above the knee). He is not having any pain or paresthesias to his groin or genitals. He is not having any abnormalities with defecation or urination. He has not been running fevers. MD elicited complaint: back pain Pertinent past history: prior back pain Onset (ago): day(s) Timing: constant Similar Symptoms Previously: Yes Location: lumbar spine Radiation: right upper leg Exacerbating factors: movement, coughing/sneezing and other (lying down) Relieving factors: none Associated symptoms: Deny abdominal pain, chills, change in bowel habits, difficulty walking, dysuria, fatigue, fever(s), hematuria, nausea or vomiting Work related injury: No Review of Systems Const: Denies: fever(s), chills, body aches, fatigue or malaise Card: Denies: chest pain Resp: Denies: dyspnea GI: Denies: abdominal pain, nausea, vomiting or change in bowel habits : Denies: flank pain, dysuria or hematuria Musc: Reports: back pain; Denies: neck pain, extremity pain, joint pain or decrease in muscle mass Skin/Breast: Denies: rash Neuro: Denies: headache(s), weakness in extremities or difficulty walking PFS ED PFSH: Medical History No pertinent past medical history Surgical History No pertinent past surgical history Family History Mother Stroke Social History Smoking and tobacco status: never smoked Alcohol intake: current Alcohol intake frequency: few times a week Physical Exam Const: COMMON NORMALS: no acute distress, patient oriented x3, no limitations, alert and well nourished GENERAL APPEARANCE: cooperative ORIENTATION/CONSCIOUSNESS: Yes awake, Yes oriented to person, Yes oriented to place and Yes oriented to time Chest: COMMONS NORMALS: normal inspection of the chest and normal palpation of entire chest wall Resp: COMMON NORMALS: normal respiratory effort and clear to auscultation bilaterally AUSCULTATION: clear to auscultation bilaterally Cardio: COMMON NORMALS: regular rate and regular rhythm RATE: regular rate RHYTHM: regular rhythm : COMMON NORMALS: Yes no CVA tenderness BLADDER/KIDNEY EXAM: Yes no CVA tenderness Back/Pelvis: COMMON NORMALS: no CVA tenderness THORACIC SPINE/UPPER BACK: Yes normal to inspection, Yes thoracic ROM normal, No thoracic spinal tenderness, No paraspinal muscle tenderness and No paraspinal muscle spasm LUMBAR SPINE/LOWER BACK: Yes normal to inspection, Yes lumbar ROM normal, Yes pain with ROM, Yes lumbar spinal tenderness (upper to mid L spine), Yes paraspinal muscle tenderness Lumbar paraspinal muscle tenderness: bilateral, No paraspinal muscle spasm and Yes straight leg raise negative bilaterally PELVIS: Yes buttocks normal SACROILIAC JOINTS: Yes SI joints normal Extremity: COMMON NORMALS: normal to inspection GENERAL: Yes normal exam except as noted Neuro: COMMON NORMALS: patient oriented x3, moves all extremities, no focal motor deficits, no sensory deficits noted and gait normal S ENSORIUM/ORIENTATION: Yes alert, Yes oriented to person, Yes oriented to place and Yes oriented to time MOTOR EXAM: 5/5 motor strength present throughout Skin: COMMON NORMALS: no rashes or lesions noted GENERAL SKIN EXAM: no rashes or lesions noted Course Vital Signs: Vital signs: Vital Signs Temperature 98.0 F 06/05/21 13:21 Pulse Rate 89 06/05/21 13:21 Respiratory Rate 16 06/05/21 13:21 Blood Pressure 128/84 06/05/21 13:21 Pulse Oximetry 96 06/05/21 13:21 MDM - Back Pain/Injury Medical Decision Making Patient has no acute neurologic deficits on today's exam. Lumbar XR is normal. We will get patient set up with a PCP for further evaluation and treatment of his acute on chronic lower back pain. There is no need for emergent CT or MRI imaging today. Labs Radiology Impressions Lumbar Spine X-Ray 06/05/21 13:40 IMPRESSION: No acute findings. If there is desire for further evaluation, a MRI could be performed. Discharge Plan Discharge Patient Disposition: Home Clinical Impression: Right lumbar radiculopathy Condition: Stable Prescriptions: New diclofenac sodium 50 mg tablet,delayed release (DR/EC) 50 mg PO Q12H PRN (Reason: pain) Qty: 20 0RF Medrol (Francisco) 4 mg tablets,dose pack See Rx Instructions .ROUTE .COMPLEX Qty: 21 0RF Rx Instructions: orally per package directions No Action acetaminophen 500 mg Tablet 500 mg PO Q6H PRN (Reason: Pain) 0RF losartan 50 mg Tablet 25 mg PO DAILY Qty: 30 0RF Discharge Orders: Discharge ED (Routine); Ordered 06/05/21 Ordered By: Cortney Farias Stand Alone Forms: Work/School Release Coding Level of Care Code ED Network Desktop Support Specialist for Meka Fwd Exam Comprehensive
--- NOTE | 2021-06-05 13:40 | XRR_ITS ---
PROCEDURE INFORMATION: Exam: XR Lumbosacral Spine Exam date and time: 06/05/2021 1:53 PM Age: 35 years old Clinical indication: Low back pain; Patient HX: Pain in lower back x few days; Additional info: Low back pain, radiculopathy TECHNIQUE: Imaging protocol: XR of the lumbosacral spine. Views: 2 or 3 views. COMPARISON: No relevant prior studies available. FINDINGS: Bones/joints: No acute fracture. Normal alignment. The disc spaces are well preserved. There is mild osteophyte formation at L3/4. Soft tissues: Unremarkable. XR/XR lumbar spine 2-3V* [id number] IMPRESSION: No acute findings. If there is desire for further evaluation, a MRI could be performed.
[2021-06-05] MEDS: dexamethasone 10 mg/mL INJ 8 MG IM (14:07)
[2021-06-05] MEDS: ketorolac 60 mg/2 mL INJ IM (14:07)
--- NOTE | 2021-06-06 11:35 | DCPLANNER ---
occupational therapy manager had message to speak with patient about getting established with a primary care physician. occupational therapy manager called phone number [phone], unable to speak with patient and unable to leave a message for patient.
== END 2021-06-05 15:35 | disposition home or self-care (01) ==
PROVIDERS: Emergency Provider Physician Assistant
DX: M54.16 Radiculopathy, lumbar region (principal)
CPT/HCPCS: 72100; 96372; 99283; J1100; J1885

== ENCOUNTER 2022-03-03 14:58 | Emergency (ER) | payer OTHER, SELFPAY ==
[2022-03-03 15:03] VITALS: BP 136/93; PULSE 85; RESP 16; TEMP 36.4; O2SAT 97; BMI 32.4
[2022-03-03 15:08] VITALS: BP 133/95; PULSE 79; O2SAT 96
--- NOTE | 2022-03-03 15:11 | ECG_ITS ---
[facility] Test Date: 2022-03-03 Pat Name: Jose Pandya Department: Room: Gender: Male Publications Editor: : 1985 Requested By: Darshan Voss Order Number: [id number] Reading MD: Jhoan Seals Measurements Intervals [place] Rate: 79 P: 38 SC: 120 QRS: -14 QRSD: 138 T: 79 QT: 392 QTc: 450 Interpretive Statements SINUS RHYTHM VENTRICULAR PREEXCITATION / WPW Compared to ECG 04/08/2021 00:32:57 No significant change Electronically Signed On 03-04-2022 15:23:19 CASTING FINISHER by Jhoan Seals [id number]
--- NOTE | 2022-03-03 15:11 | XRR_ITS ---
PROCEDURE INFORMATION: Exam: XR Chest Exam date and time: 03/03/2022 3:21 PM Age: 36 years old Clinical indication: Cough and dyspnea; Additional info: Dyspnea/cough TECHNIQUE: Imaging protocol: Radiologic exam of the chest. Views: 1 view. COMPARISON: No relevant prior studies available. FINDINGS: Lungs: Unremarkable. No consolidation. Pleural spaces: Unremarkable. No pleural effusion. No pneumothorax. Heart/Mediastinum: Unremarkable. No cardiomegaly. Bones/joints: Unremarkable. XR/XR chest 1V portable [id number] IMPRESSION: No acute findings.
[2022-03-03 15:38] VITALS: BP 133/85; PULSE 82; O2SAT 93
[2022-03-03 15:38] LABS: Basophils # 0.1 10^3/uL (0.0-0.1); Basophils % 0.9 %; Eosinophils # 0.2 10^3/uL (0.0-0.8); Eosinophils % 2.5 %; Hematocrit 43.9 % (42.0-52.0); Hemoglobin 15.6 g/dL (11.7-16.6); Lymphocytes # 2.1 10^3/uL (0.8-4.8); Lymphocytes % 23.5 %; Mean Corpuscular HGB Conc 35.5 g/dL (30.0-36.0); Mean Corpuscular Hemoglobin 30.2 pg (28.0-34.0); Mean Corpuscular Volume 84.9 fl (80-94); Mean Platelet Volume 10.2 fL (7.4-10.4); Monocytes # 0.6 10^3/uL (0.2-0.9); Monocytes % 6.9 %; Neutrophils # 5.99 10^3/uL (1.8-7.7); Nucleated Red Blood Cells % 0 %; Platelet Count 307 10^3/cmm (130-400); Red Blood Count 5.17 10^6/uL (4.1-5.3); Red Cell Distribution Width 12.1 % (12.1-15.1); White Blood Count 9.1 10^3/uL (4.0-10.0)
--- NOTE | 2022-03-03 15:55 | W.ED.CHESTPA ---
HPI - Chest Pain General: Chief Complaint: Chest Pain Stated Complaint: CP Time Seen by Provider: 03/03/22 15:11 Source: patient Mode of arrival: ambulatory History of Present Illness: 36-year-old male who presents to the emergency room with complaints of elevated blood pressure episode of palpitations. Has a history of Boyle Parkinson's White he was supposed to have had an ablation but never completed it. He was previously on losartan for hypertension. By the time the patient is arrived here blood pressure is significantly improved and he is asymptomatic MD complaint: other (Hypertension palpitations) Pertinent past history: other (Etmzs-Zmsxduhky-Jlgak) Onset (ago): hour(s) Timing of current episode: episodic Onset: during rest Pain radiation: none Quality: tightness and heaviness Relieving factors: nothing Exacerbating factors: nothing Associated symptoms: Reports palpitations; Deny abdominal pain, diaphoresis, dyspnea, fever(s), leg edema, nausea, sense of impending doom, syncope or vomiting Treatment prior to arrival: none Review of Systems Const: Denies: fever(s), chills, fatigue, malaise or diaphoresis ENMT: Denies: throat pain, ear or mastoid pain, nasal discharge or nasal congestion Card: Reports: palpitations and irregular heart rhythm; Denies: chest pain, edema, swelling of feet/ankles or syncope Resp: Denies: dyspnea GI: Denies: abdominal pain, nausea or vomiting : Denies: flank pain, dysuria, urinary frequency or urinary urgency Skin/Breast: Denies: rash or pruritus PFSH ED PFSH: Medical History No pertinent past medical history Surgical History No pertinent past surgical history Family History Mother Stroke Social History Smoking and tobacco status: never smoked Alcohol intake: current Alcohol intake frequency: few times a week Physical Exam Const: GENERAL APPEARANCE: cooperative and comfortable ORIENTATION/CONSCIOUSNESS: Yes awake, Yes oriented to person, Yes oriented to place and Yes oriented to time HENMT: COMMON NORMALS: normocephalic, atraumatic and hearing grossly normal bilaterally HEAD & SCALP: normocephalic and atraumatic Resp: COMMON NORMALS: normal respiratory effort, No retractions, No use of accessory muscles and clear to auscultation bilaterally AUSCULTATION: clear to auscultation bilaterally Cardio: COMMON NORMALS: regular rate, regular rhythm and No murmurs present (Cardio) RATE: regular rate RHYTHM: regular rhythm GI: COMMON NORMALS: Soft to palpation and No hepatosplenomegaly present AUSCULTATION: Yes normoactive bowel sounds PALPATION: Yes Soft to palpation, No Tenderness to palpation present (GI), No Guarding due to palpation present (GI) and Yes No hepatosplenomegaly present Extremity: COMMON NORMALS: normal to inspection, capillary refill normal, no clubbing, cyanosis or edema, no calf tenderness and no pedal edema Neuro: SENSORIUM/ORIENTATION: Yes oriented to person, Yes oriented to place and Yes oriented to time Skin: COMMON NORMALS: no rashes or lesions noted GENERAL SKIN EXAM: no rashes or lesions noted Course Vital Signs: Vital signs: Vital Signs Temperature 97.5 F L 03/03/22 15:03 Pulse Rate 78 03/03/22 16:23 Respiratory Rate 16 03/03/22 15:03 Blood Pressure 141/85 03/03/22 16:23 Pulse Oximetry 94 03/03/22 16:23 Oxygen Delivery Me thod 03/03/22 16:23 MDM - Chest Pain Medical Decision Making Patient's heart rate well controlled at this time blood pressure normal. We will restart losartan 50 mg daily. We will set up follow-up with cardiology through case management. Medical Records I reviewed the patient's medical records. Lab Data I reviewed the patient's lab results. 03/03/22 15:30 03/03/22 15:30 Radiology Impressions Chest X-Ray 03/03/22 15:11 IMPRESSION: No acute findings. Laboratory Results WBC 9.1 10^3/uL (4.0-10.0) 03/03/22 15:30 RBC 5.17 10^6/uL (4.1-5.3) 03/03/22 15:30 Hgb 15.6 g/dL (11.7-16.6) 03/03/22 15:30 Hct 43.9 % (42.0-52.0) 03/03/22 15:30 MCV 84.9 fl (80-94) 03/03/22 15:30 MCH 30.2 pg (28.0-34.0) 03/03/22 15:30 MCHC 35.5 g/dL (30.0-36.0) 03/03/22 15:30 RDW 12.1 % (12.1-15.1) 03/03/22 15:30 Plt Count 307 10^3/cmm (130-400) 03/03/22 15:30 MPV 10.2 fL (7.4-10.4) 03/03/22 15:30 Neut % (Auto) 66.0 % 03/03/22 15:30 Lymph % (Auto) 23.5 % 03/03/22 15:30 [place] % (Auto) 6.9 % 03/03/22 15:30 Eos % (Auto) 2.5 % 03/03/22 15:30 Baso % (Auto) 0.9 % 03/03/22 15:30 Neut # (Auto) 5.99 10^3/uL (1.8-7.7) 03/03/22 15:30 Lymph # (Auto) 2.1 10^3/uL (0.8-4.8) 03/03/22 15:30 [place] # (Auto) 0.6 10^3/uL (0.2-0.9) 03/03/22 15:30 Eos # (Auto) 0.2 10^3/uL (0.0-0.8) 03/03/22 15:30 Baso # (Auto) 0.1 10^3/uL (0.0-0.1) 03/03/22 15:30 Nucleated RBC % (auto) 0 % 03/03/22 15:30 Nucleated RBCs # 0.0 /100WBC 03/03/22 15:30 Sodium 137 mmol/L (136-145) 03/03/22 15:30 Potassium 4.1 mmol/L (3.5-5.1) 03/03/22 15:30 Chloride 101 mmol/L (98-107) 03/03/22 15:30 Carbon Dioxide 25 mmol/L (22-29) 03/03/22 15:30 Anion Gap 15.1 (5-19) 03/03/22 15:30 BUN 9 mg/dL (6-20) 03/03/22 15:30 Creatinine 0.9 mg/dL (0.7-1.2) 03/03/22 15:30 GFR Calculation 95.5 mL/min (90-130) 03/03/22 15:30 Glucose 100 mg/dL (65-115) 03/03/22 15:30 Calculated Osmolality 283 mOsm/kg (285-295) L 03/03/22 15:30 Calcium 10.0 mg/dL (8.5-10.5) 03/03/22 15:30 Total Bilirubin 0.4 mg/dL (0.15-1.2) 03/03/22 15:30 AST 26 U/L (0-40) 03/03/22 15:30 ALT 26 U/L (0-41) 03/03/22 15:30 Alkaline Phosphatase 103 U/L (40-130) 03/03/22 15:30 Total Protein 7.4 g/dL (6.6-8.7) 03/03/22 15:30 Albumin 4.8 g/dL (3.5-5.2) 03/03/22 15:30 Globulin 2.6 g/dL (1.3-4.6) 03/03/22 15:30 Discharge Plan Discharge Patient Disposition: Home Clinical Impression: Mqinl-Ekfwyudru-Aoner (WPW) pattern seen on electrocardiography, Hypertension Condition: Stable Prescriptions: New losartan 50 mg tablet 50 mg PO DAILY Qty: 30 0RF No Action acetaminophen 500 mg Tablet 500 mg PO Q6H PRN (Reason: Pain) losartan 50 mg Tablet 25 mg PO DAILY Qty: 30 0RF diclofenac sodium 50 mg tablet,delayed release (DR/EC) 50 mg PO Q12H PRN (Reason: pain) Qty: 20 0RF Medrol (Francisco) 4 mg tablets,dose pack See Rx Instructions .ROUTE .COMPLEX Qty: 21 0RF Rx Instructions: orally per package directions Discharge Orders: Discharge ED (Routine); Ordered 03/03/22 Ordered By: Darshan Koenig Discharge Diet: Usual diet Discharge Activity: Limit activity as instructed Patient Instructions: Opioid Safety, Pain Management Activity Restrictions/Additional Instructions: You were seen today for elevated blood pressure and episode of palpitations. Your heart rate remained normal in the emergency room. Blood pressure is slightly elevated you reported even higher blood pressures at home. We will restart losartan 50 mg once daily you were given a prescription. quality control manager will make arrangements for you to have follow-up with cardiology clinic. They will contact you with the date and time. Stand Alone Forms: Work/School Release Coding Level of Care Code ED Engine Boss for Meka Fwd Exam Detailed
[2022-03-03 16:01] LABS: Alanine Aminotransferase 26 U/L (0-41); Albumin Level 4.8 g/dL (3.5-5.2); Alkaline Phosphatase 103 U/L (40-130); Anion Gap 15.1 (5-19); Aspartate Amino Transferase 26 U/L (0-40); Blood Urea Nitrogen 9 mg/dL (6-20); Carbon Dioxide 25 mmol/L (22-29); Chloride 101 mmol/L (98-107); Creatinine Clr Calc Pharmacy 127.9495; Globulin 2.6 g/dL (1.3-4.6); Glomerular Filtration Rate 95.5 mL/min (90-130); Glucose 100 mg/dL (65-115); Osmolality Calculated 283 mOsm/kg (285-295); Potassium 4.1 mmol/L (3.5-5.1); Sodium 137 mmol/L (136-145); Total Bilirubin 0.4 mg/dL (0.15-1.2); Total Protein 7.4 g/dL (6.6-8.7)
[2022-03-03 16:23] VITALS: BP 141/85; PULSE 78; O2SAT 94
[2022-03-03 16:47] VITALS: BP 141/85; PULSE 91; RESP 19; O2SAT 95
--- NOTE | 2022-03-05 08:59 | DCPLANNER ---
Addendum entered by Rosemarie Glynn 05/16/22 07:49: Patient had a follow up appointment scheduled with heart care - patient did attend appointment. Addendum entered by Rosemarie Glynn 03/06/22 13:53: Patient has a follow up appointment scheduled for Sunday, April 17, 2022 at 2:[address] Lucero at heart care. Clinic will call patient with appointment information. Original Note: communications manager had message to schedule a follow up appointment for patient with cardiology. communications manager sent patients information to the front office staff at cardiology. Patients information will be printed and reviewed. Clinic will call patient with appointment information.
== END 2022-03-03 16:40 | disposition home or self-care (01) ==
PROVIDERS: Emergency Provider Family Medicine
DX: I45.6 Pre-excitation syndrome (principal); I10 Essential (primary) hypertension
CPT/HCPCS: 71045; 80053; 85025; 93005; 99285

== ENCOUNTER 2022-04-01 05:18 | Emergency (ER) | payer OTHER, SELFPAY ==
[2022-04-01 05:43] VITALS: BP 140/89; PULSE 99; RESP 18; TEMP 37.2; O2SAT 96; BMI 28.1
--- NOTE | 2022-04-01 06:27 | W.ED.GENADLT ---
HPI - General Adult General: Chief complaint: General Medical Stated complaint: weakness , cough, throat swelling Time Seen by Provider: 04/01/22 05:56 History of Present Illness: 36-year-old male presents with some generalized malaise. Patient is complaining of just having some body soreness. He is got some swollen tender lymph nodes in his anterior neck. He feels like his lymph nodes are growing little tender and swollen. Patient reports some mild cough. He denies any recent high risk sexual activity or risk for HIV. He denies any sore throat, shortness of breath, fever, nausea, vomiting or diarrhea. Associated symptoms: Reports malaise; Deny chest pain, diaphoresis, dyspnea, headache(s), nausea, rash, palpitations or vomiting Review of Systems Const: Reports: body aches, fatigue and malaise; Denies: fever(s), night sweats or diaphoresis Eyes: Denies: change in vision ENMT: Denies: throat pain, hoarseness or ear or mastoid pain Card: Denies: chest pain or palpitations Resp: Reports: non-productive cough; Denies: dyspnea, wheezing or chest congestion GI: Denies: abdominal pain, nausea, vomiting or diarrhea : Denies: flank pain or difficulty urinating Musc: Denies: joint pain or joint swelling Skin/Breast: Denies: rash or skin tenderness Neuro: Denies: headache(s) Carlos/Lymph: Reports: tender lymph nodes [facility] ED PFSH: Medical History No pertinent past medical history Surgical History No pertinent past surgical history Family History Mother Stroke Social History Smoking and tobacco status: never smoked Alcohol intake: current Alcohol intake frequency: few times a week Physical Exam Const: COMMON NORMALS: no acute distress, patient oriented x3, healthy appearing and alert HENMT: COMMON NORMALS: normocephalic, hearing grossly normal bilaterally and moist oral mucous membranes HEAD & SCALP: normocephalic Neck/C-Spine: COMMON NORMALS: full ROM, supple and no meningeal signs GENERAL: Yes lymphadenopathy Lymphadenopathy location: submandibular tender Resp: COMMON NORMALS: normal respiratory effort, No use of accessory muscles and clear to auscultation bilaterally AUSCULTATION: clear to auscultation bilaterally Cardio: COMMON NORMALS: regular rate and regular rhythm RATE: regular rate RHYTHM: regular rhythm GI: COMMON NORMALS: Soft to palpation and non-tender PALPATION: Yes Soft to palpation Extremity: COMMON NORMALS: normal to inspection, full ROM and capillary refill normal Neuro: COMMON NORMALS: patient oriented x3, moves all extremities and no focal motor deficits SENSORIUM/ORIENTATION: Yes alert MENINGEAL SIGNS: Yes no meningeal signs Psych: COMMON NORMALS: mental status grossly normal, cooperative and normal affect Skin: COMMON NORMALS: no rashes or lesions noted GENERAL SKIN EXAM: no rashes or lesions noted Course Vital Signs: Vital signs: Vital Signs Temperature 99.0 F 04/01/22 05:43 Pulse Rate 99 04/01/22 05:43 Respiratory Rate 18 04/01/22 05:43 Blood Pressure 140/89 04/01/22 05:43 Pulse Oximetry 96 04/01/22 05:43 [facility] - General Adult Medical Decision Making Patient's labs were reviewed. He is negative for strep, influenza and COVID. Patient does have moderate tenderness to his lymph nodes. I will treat him with Keflex for 10 days. Had a long discussion with him regarding the need to closely follow. That if he does not have improvement for antibiotics and is followed with a primary care provider for further evaluation and testing. Did discuss HIV testing which he reports that he is not at risk for that was not obtained. Patient was stable and discharged home Lab Data Laboratory Results Influenza Type A Ag negative (Negative) 04/01/22 06:05 Influenza Type B Ag negative (Negative) 04/01/22 06:05 SARS-CoV-2 Ag (Rapid) negative (Negative) 04/01/22 06:05 Group A Strep Rapid Negative (Negative) 04/01/22 06:05 Discharge Plan Discharge Patient Disposition: Home Clinical Impression: Acute lymphadenitis Condition: Stable Prescriptions: New cephalexin 500 mg capsule 500 mg PO Q6H 10 Days Qty: 40 0RF No Action acetaminophen 500 mg Tablet 500 mg PO Q6H PRN (Reason: Pain) losartan 50 mg Tablet 25 mg PO DAILY Qty: 30 0RF losartan 50 mg tablet 50 mg PO DAILY Qty: 30 0RF diclofenac sodium 50 mg tablet,delayed release (DR/EC) 50 mg PO Q12H PRN (Reason: pain) Qty: 20 0RF Medrol (Francisco) 4 mg tablets,dose pack See Rx Instructions .ROUTE .COMPLEX Qty: 21 0RF Rx Instructions: orally per package directions Discharge Orders: Discharge ED (Routine); Ordered 04/01/22 Ordered By: Xander Butler Discharge Diet: Usual diet Discharge Activity: Resume usual activity Patient Instructions: Lymphadenopathy (ED), Lymphangitis (ED), Opioid Safety, Pain Management Activity Restrictions/Additional Instructions: Please follow-up with your primary care provider for reevaluation if symptoms have not resolved following antibiotics. 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
[2022-04-01 06:32] LABS: Rapid Strep A Test Negative (Negative)
[2022-04-01 06:38] LABS: Influenza A by IFA negative (Negative); Influenza B by IFA negative (Negative); SARS Covid-2 Antigen negative (Negative)
== END 2022-04-01 06:57 | disposition home or self-care (01) ==
PROVIDERS: Emergency Provider Student in an Organized Health Care Education/Training Program
DX: L04.9 Acute lymphadenitis, unspecified (principal); Z20.822 Contact with and (suspected) exposure to COVID-19
CPT/HCPCS: 87081; 87426; 87804; 87880; 99283

== ENCOUNTER 2022-05-19 17:14 | Emergency (ER) | payer OTHER, SELFPAY ==
[2022-05-19 17:15] VITALS: BP 146/92; PULSE 92; RESP 16; TEMP 36.6; O2SAT 97
--- NOTE | 2022-05-19 17:25 | ED_ITS ---
HPI - Skin/Abscess/Foreign Bdy General: Chief complaint: Skin/Abscess/Foreign Body Stated complaint: possible spider bite on right leg Time Seen by Provider: 05/19/22 17:25 History of Present Illness: 36-year-old male patient comes in today for complaints of possible insect bite to the posterior right thigh lower hip area. Patient noticed the wound last night while at work. Patient noticed increased redness and tenderness to the site today. Patient's immunizations are up-to-jacob e. 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 Associated symptoms: Deny fever(s), nausea or vomiting Review of Systems General: Reports: 10 or more systems reviewed and unremarkable except in HPI and below Const: Denies: fever(s) Card: Denies: chest pain Resp: Denies: dyspnea GI: Denies: nausea or vomiting Musc: Reports: extremity pain Skin/Breast: Reports: erythema PFS ED PFSH: Medical History No pertinent past medical history Surgical History No pertinent past surgical history Family History Mother Stroke Social History Smoking and tobacco status: never smoked Alcohol intake: current Alcohol intake frequency: few times a week Physical Exam Const: COMMON NORMALS: alert HENMT: COMMON NORMALS: normocephalic HEAD & SCALP: normocephalic Neck/C-Spine: COMMON NORMALS: full ROM Resp: COMMON NORMALS: normal respiratory effort and clear to auscultation bilaterally AUSCULTATION: clear to auscultation bilaterally Cardio: COMMON NORMALS: regular rate and regular rhythm RATE: regular rate RHYTHM: regular rhythm Back/Pelvis: COMMON NORMALS: thoracic and lumbar spine normal to inspection Extremity: RIGHT LOWER EXTREMITY: Yes upper leg (3 cm area of redness with a centralized papular raised lesion.) Neuro: SENSORIUM/ORIENTATION: Yes alert Skin: LESIONS: lesion noted (Right thigh.) Course Vital Signs: Vital signs: Vital Signs Temperature 97.8 F 05/19/22 17:15 Pulse Rate 92 05/19/22 17:15 Respiratory Rate 16 05/19/22 17:15 Blood Pressure 146/92 05/19/22 17:15 Pulse Oximetry 97 05/19/22 17:15 Oxygen Delivery Me thod 05/19/22 17:15 MDM - Skin/Abscess/Foreign Bdy Medicial Decision Making 36-year-old male patient comes in today with complaints of insect bite to the right thigh. On exam patient has some area of redness with a centralized papular lesion. No significant induration or fluctuance is noted in the area. Differential diagnosis includes but not limited to localized reaction to insect bite, cellulitis, folliculitis. Area appears to be a localized reaction to insect bite possible spider. Recommended a dose of dexamethasone and triamcinolone cream to the area. Monitor site for signs of infection if fever or redness becomes more tender patient would need antibiotic. At this time recommended prescription and a pocket and monitoring for the next 3 days. Patient reported understanding and agreed to plan. Discharge Plan Discharge Patient Disposition: Home Clinical Impression: Insect bite of hip with local reaction Qualifiers: Encounter type: initial encounter Laterality: right Qualified Code(s): S70.261A - Insect bite (nonvenomous), right hip, initial encounter Condition: Stable Prescriptions: New Bactrim DS 800-160 mg tablet 1 tab PO DAILY 7 Days Qty: 14 0RF triamcinolone acetonide 0.1 % cream 1 applic topical BID Qty: 30 0RF No Action acetaminophen 500 mg Tablet 500 mg PO Q6H PRN (Reason: Pain) losartan 50 mg Tablet 25 mg PO DAILY Qty: 30 0RF losartan 50 mg tablet 50 mg PO DAILY Qty: 30 0RF diclofenac sodium 50 mg tablet,delayed release (DR/EC) 50 mg PO Q12H PRN (Reason: pain) Qty: 20 0RF Medrol (Francisco) 4 mg tablets,dose pack See Rx Instructions .ROUTE .COMPLEX Qty: 21 0RF Rx Instructions: orally per package directions Discharge Orders: Discharge ED (Routine); Ordered 05/19/22 Ordered By: Ranjan Joe Discharge Diet: Usual diet Discharge Activity: Increase activity as tolerated Patient Instructions: Insect Bite or Sting (ED) Activity Restrictions/Additional Instructions: Avoid scratching the area. Use triamcinolone cream 2 times a day to the area until cleared. Hold the antibiotic until signs of infection such as fever, increasing redness and pain, purulent drainage. Follow-up with primary care in 2 to 3 days for recheck. Return to ED for worsening symptoms such as increasing swelling and redness to the site and extremity, fever greater than 100.4, or severe pain. 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
[2022-05-19] MEDS: dexamethasone 10 mg/mL INJ IM (17:49)
--- NOTE | 2022-05-25 13:57 | DCPLANNER ---
Addendum entered by Rosemarie Glynn 05/25/22 13:57: registration manager called patient due to no primary care physician - no answer at this time. Original Note: 05.19.22 - TCM called patient due to no primary care physician - no answer at this time.
== END 2022-05-19 17:51 | disposition home or self-care (01) ==
PROVIDERS: Emergency Provider Nurse Practitioner Family
DX: S70.361A Insect bite (nonvenomous), right thigh, initial encounter (principal); W57.XXXA Bitten or stung by nonvenomous insect and other nonvenomous arthropods, initial encounter
CPT/HCPCS: 96372; 99284; J1100

== ENCOUNTER 2022-09-12 23:04 | Emergency (ER) | payer OTHER, SELFPAY ==
--- NOTE | 2022-09-12 23:12 | ED_ITS ---
HPI - Chest Pain General: Chief Complaint: Chest Pain Stated Complaint: chest pain Time Seen by Provider: 09/12/22 23:12 History of Present Illness: Mr. Pandya is a 36-year-old gentleman with history of Boyle Parkinson White syndrome presented to the emergency department for chest discomfort. He reports being at his baseline health and has rare history of short-lived intermittent chest discomfort. Today he had onset of symptoms that is been more constant. Pain in the rest chest with mild amount of dyspnea. Has been more persistent and a little bit worsened throughout the day. No other specific changes in health, exacerbating, or alleviating factors identified. Onset (ago): hour(s) Pain location: right chest Severity: moderate Quality: tightness and aching Exacerbating factors: exertion Associated symptoms: Reports dyspnea and other Review of Systems General: Reports: 10 or more systems reviewed and unremarkable except in HPI and below Resp: Reports: dyspnea PFS ED PFSH: Medical History No pertinent past medical history Surgical History No pertinent past surgical history Family History Mother Stroke Social History Smoking and tobacco status: never smoked Alcohol intake: current Alcohol intake frequency: few times a week Substance/Drug Use: never Physical Exam Const: COMMON NORMALS: alert GENERAL APPEARANCE: cooperative and well developed HENMT: COMMON NORMALS: normocephalic and atraumatic HEAD & SCALP: normocephalic and atraumatic Eye: COMMON NORMALS: conjunctivae normal CONJUNCTIVA: Yes conjunctivae normal SCLERA: sclerae normal Neck/C-Spine: COMMON NORMALS: supple GENERAL: Yes trachea midline Resp: COMMON NORMALS: clear to auscultation bilaterally EFFORT & IN SPECTION: Yes able to speak in complete sentences AUSCULTATION: clear to auscultation bilaterally Cardio: COMMON NORMALS: regular rate and regular rhythm RATE: regular rate RHYTHM: regular rhythm GI: COMMON NORMALS: Soft to palpation PALPATION: Yes Soft to palpation and No Tenderness to palpation present (GI) Extremity: GENERAL: Yes normal exam except as noted and No edema Neuro: COMMON NORMALS: moves all extremities SENSORIUM/ORIENTATION: Yes alert and No Orientation impaired Psych: COMMON NORMALS: mental status grossly normal and Normal thought process present THOUGHT PROCESS: Normal thought process present Course Vital Signs: Vital signs: Vital Signs Temperature 98.8 F 09/12/22 23:14 Pulse Rate 81 09/13/22 02:25 Respiratory Rate 16 09/13/22 02:25 Blood Pressure 135/74 09/13/22 02:25 Pulse Oximetry 98 09/13/22 02:25 Oxygen Delivery Me thod Room Air 09/13/22 02:15 MDM - Chest Pain Medical Decision Making 36-year-old gentleman with WPW presenting due to chest pain. Exam as above. Patient was lost to follow-up and not currently on medications. EKG demonstrate sinus rhythm with WPW morphology. No STEMI. Labs with no leukocytosis, normal hemoglobin and platelet count. Metabolic panel with minimal hypokalemia and hypomagnesemia when considering arrhythmia prevention. Negative initial and repeat troponin. EKG demonstrates no lobar consolidation or pneumothorax. Patient treated with losartan which she was previously on, fluids, potassium and magnesium replenishment. Discussed with cardiology, patient is appropriate for outpatient management and will be referred back to cardiology. The results of ED evaluation were discussed with the patient including p rescriptions and/or symptomatic cares (if applicable) including appropriate and responsible use, followup plan, and return precautions. The patient verbalized understanding and felt safe for discharge. Medical Records I reviewed the patient's medical records. Lab Data I reviewed the patient's lab results. 09/12/22 23:19 09/12/22 23:19 Radiology Impressions Chest X-Ray 09/12/22 23:16 IMPRESSION: No acute findings. Laboratory Results WBC 8.9 10^3/uL (4.0-10.0) 09/12/22 23:19 RBC 4.80 10^6/uL (4.1-5.3) 09/12/22 23:19 Hgb 14.4 g/dL (11.7-16.6) 09/12/22 23:19 Hct 41.4 % (42.0-52.0) L 09/12/22 23:19 MCV 86.3 fl (80-94) 09/12/22 23:19 MCH 30.0 pg (28.0-34.0) 09/12/22 23:19 MCHC 34.8 g/dL (30.0-36.0) 09/12/22 23:19 RDW 13.0 % (12.1-15.1) 09/12/22 23:19 Plt Count 296 10^3/cmm (130-400) 09/12/22 23:19 MPV 10.1 fL (7.4-10.4) 09/12/22 23:19 Neut % (Auto) 67.0 % 09/12/22 23:19 Lymph % (Auto) 24.2 % 09/12/22 23:19 Lea % (Auto) 6.2 % 09/12/22 23:19 Eos % (Auto) 1.8 % 09/12/22 23:19 Baso % (Auto) 0.7 % 09/12/22 23:19 Neut # (Auto) 5.96 10^3/uL (1.8-7.7) 09/12/22 23:19 Lymph # (Auto) 2.2 10^3/uL (0.8-4.8) 09/12/22 23:19 Lea # (Auto) 0.6 10^3/uL (0.2-0.9) 09/12/22 23:19 Eos # (Auto) 0.2 10^3/uL (0.0-0.8) 09/12/22 23:19 Baso # (Auto) 0.1 10^3/uL (0.0-0.1) 09/12/22 23:19 Nucleated RBC % (auto) 0 % 09/12/22 23:19 Nucleated RBCs # 0.0 /100WBC 09/12/22 23:19 Sodium 142 mmol/L (136-145) 09/12/22 23:19 Potassium 3.4 mmol/L (3.5-5.1) L 09/12/22 23:19 Chloride 104 mmol/L (98-107) 09/12/22 23:19 Carbon Dioxide 25 mmol/L (22-29) 09/12/22 23:19 Anion Gap 16.4 (5-19) 09/12/22 23:19 BUN 8 mg/dL (6-20) 09/12/22 23:19 Creatinine 0.7 mg/dL (0.7-1.2) 09/12/22 23:19 GFR Calculation 127.6 mL/min (90-130) 09/12/22 23:19 Glucose 97 mg/dL (65-115) 09/12/22 23:19 Calculated Osmolality 292 mOsm/kg (285-295) 09/12/22 23:19 Calcium 9.4 mg/dL (8.5-10.5) 09/12/22 23:19 Magnesium 1.8 mg/dL (1.7-2.3) 09/12/22 23:19 Troponin T Baseline 6 ng/L (0-15) 09/12/22 23:19 Troponin T 120 Minute 6.00 ng/L (0-15) 09/13/22 01:24 Delta Troponin T 0 ABS# (0-10) 09/13/22 01:24 NT-Pro-B Natriuret Pep 36 pg/mL (0-125) 09/12/22 23:19 Lipase 45 U/L (13-60) 09/12/22 23:19 Discharge Plan Discharge Patient Disposition: Home Clinical Impression: Bqgzg-Iazxsejdr-Urbhk (WPW) pattern seen on electrocardiography, Chest pain, Hypokalemia, Hypomagnesemia Condition: Stable Prescriptions: New losartan 25 mg tablet 25 mg PO DAILY Qty: 30 2RF No Action acetaminophen 500 mg Tablet 500 mg PO Q6H PRN (Reason: Pain) losartan 50 mg Tablet 25 mg PO DAILY Qty: 30 0RF losartan 50 mg tablet 50 mg PO DAILY Qty: 30 0RF triamcinolone acetonide 0.1 % cream 1 applic topical BID Qty: 30 0RF diclofenac sodium 50 mg tablet,delayed release (DR/EC) 50 mg PO Q12H PRN (Reason: pain) Qty: 20 0RF Medrol (Francisco) 4 mg tablets,dose pack See Rx Instructions .ROUTE .COMPLEX Qty: 21 0RF Rx Instructions: orally per package directions Discharge Orders: Discharge ED (Routine); Ordered 09/13/22 Ordered By: Martin Deluna Discharge Diet: Usual diet Discharge Activity: Increase activity as tolerated Patient Instructions: Chest Pain (ED), Ihaye-Wwawffcmd-Pluwk Syndrome (ED) Activity Restrictions/Additional Instructions: Thank you for visiting the emergency department. You were seen and evaluated f or chest pain. The exact cause of your symptoms is unclear. As discussed we will plan for further outpatient management. I will message case management for cardiology follow-up. He will likely need a new referral for electrophysiology. I will restart your losartan. Please ensure that you are resting and staying hydrated. Return for anything that you are concerned about and feel needs emergency department evaluation. 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
--- NOTE | 2022-09-12 23:13 | ECG_ITS ---
[facility] Test Date: 2022-09-12 Pat Name: Jose Pandya Department: Room: Gender: Male Felt Hooker: : 1985 Requested By: Martin Deluna Order Number: [id number] Lety MD: Kiara Lucero M.D. Measurements Intervals [place] Rate: 99 P: 44 W[place]: 102 QRS: -5 QRSD: 142 T: 149 QT: 360 QTc: 464 Interpretive Statements SINUS RHYTHM WITH SHORT WY INTERVAL VENTRICULAR PREEXCITATION / WPW Compared to ECG 03/03/2022 16:07:54 Short [place] interval now present Electronically Signed On 09-13-2022 11:03:01 CDT by Kiara Lucero M.D. [id number]
[2022-09-12 23:14] VITALS: BP 171/123; PULSE 96; RESP 20; TEMP 37.1; O2SAT 98; BMI 28.3
--- NOTE | 2022-09-12 23:16 | XRR_ITS ---
PROCEDURE INFORMATION: Exam: XR Chest Exam date and time: 09/12/2022 11:30 PM Age: 36 years old Clinical indication: Pain; Chest pressure; Additional info: Cp TECHNIQUE: Imaging protocol: Radiologic exam of the chest. Views: 1 view. COMPARISON: CR XR chest 1V portable [id number] 03/03/2022 3:21 PM FINDINGS: Lungs: Unremarkable. No consolidation. Pleural spaces: Unremarkable. No pleural effusion. No pneumothorax. Heart/Mediastinum: Unremarkable. No cardiomegaly. Bones/joints: Unremarkable. XR/XR chest 1V portable [id number] IMPRESSION: No acute findings.
[2022-09-12] MEDS: sodium chloride 0.9% 500 ML 999 ML IV (23:24)
[2022-09-12 23:33] LABS: Basophils # 0.1 10^3/uL (0.0-0.1); Basophils % 0.7 %; Eosinophils # 0.2 10^3/uL (0.0-0.8); Eosinophils % 1.8 %; Hematocrit 41.4 % (42.0-52.0); Hemoglobin 14.4 g/dL (11.7-16.6); Lymphocytes # 2.2 10^3/uL (0.8-4.8); Lymphocytes % 24.2 %; Mean Corpuscular HGB Conc 34.8 g/dL (30.0-36.0); Mean Corpuscular Volume 86.3 fl (80-94); Mean Platelet Volume 10.1 fL (7.4-10.4); Monocytes # 0.6 10^3/uL (0.2-0.9); Monocytes % 6.2 %; Neutrophils # 5.96 10^3/uL (1.8-7.7); Nucleated Red Blood Cells % 0 %; Platelet Count 296 10^3/cmm (130-400); White Blood Count 8.9 10^3/uL (4.0-10.0)
[2022-09-12 23:42] LABS: Troponin(5th) Baseline 6 ng/L (0-15)
[2022-09-12 23:48] VITALS: BP 149/95; PULSE 86; RESP 19; O2SAT 98
[2022-09-13] VITALS (8 sets, daily range): BP systolic 135–188; BP diastolic 74–146; PULSE 81–94; RESP 13–20; O2SAT 93–99
[2022-09-13 00:01] LABS: Anion Gap 16.4 (5-19); Blood Urea Nitrogen 8 mg/dL (6-20); Calcium 9.4 mg/dL (8.5-10.5); Carbon Dioxide 25 mmol/L (22-29); Chloride 104 mmol/L (98-107); Glomerular Filtration Rate 127.6 mL/min (90-130); Glucose 97 mg/dL (65-115); Lipase 45 U/L (13-60); Magnesium 1.8 mg/dL (1.7-2.3); NT Pro B Type Natriuretic Pept 36 pg/mL (0-125); Osmolality Calculated 292 mOsm/kg (285-295); Potassium 3.4 mmol/L (3.5-5.1); Sodium 142 mmol/L (136-145)
[2022-09-13] MEDS: potassium chloride oral liq 20 mEq/15 mL UDC 60 MEQ PO (00:42)
[2022-09-13] MEDS: magnesium sulfate premix 2 GM/50 ML PIGGYBACK IV (00:44)
--- NOTE | 2022-09-13 01:19 | ECG_ITS ---
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 Measurements Intervals [place] Rate: 79 P: 32 TN: 116 QRS: 0 QRSD: 145 T: 0 QT: 380 QTc: 437 Interpretive Statements SINUS RHYTHM WITH SHORT [place] INTERVAL VENTRICULAR PREEXCITATION / WPW CRITICAL TEST RESULT Compared to ECG 09/12/2022 23:13:38 No significant changes Electronically Signed On 09-13-2022 12:22:45 CDT by Kiara Lucero M.D. [id number]
[2022-09-13 01:54] LABS: Troponin 5 2HR Delta 0 ABS# (0-10)
[2022-09-13] MEDS: losartan 50 mg Tablet 25 MG PO (01:54)
== END 2022-09-13 02:27 | disposition home or self-care (01) ==
PROVIDERS: Emergency Provider Emergency Medicine
DX: R07.89 Other chest pain (principal); I45.6 Pre-excitation syndrome; E87.6 Hypokalemia; E83.42 Hypomagnesemia
CPT/HCPCS: 71045; 80048; 83690; 83735; 83880; 84484; 85025; 93005; 96361; 96365; 99285; J3475; J7040

== ENCOUNTER 2023-02-28 00:46 | Emergency (ER) | payer OTHER, SELFPAY ==
--- NOTE | 2023-02-28 00:51 | ECG_ITS ---
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 Measurements Intervals [place] Rate: 86 P: 39 [place]: 125 QRS: -10 QRSD: 147 T: 119 QT: 373 QTc: 449 Interpretive Statements SINUS RHYTHM VENTRICULAR PREEXCITATION / WPW CRITICAL TEST RESULT Compared to ECG 09/13/2022 01:19:56 Short [place] interval no longer present Electronically Signed On 02-28-2023 7:16:08 INTERMEDIATE FRAME TENDER by Kiara Lucero M.D. [email or web address]/[id number]
[2023-02-28 00:52] VITALS: BP 159/113; PULSE 84; RESP 17; TEMP 36.4; O2SAT 99; BMI 29.6
--- NOTE | 2023-02-28 00:58 | ED_ITS ---
HPI - Arrhythmia/Palpitations 2 General: Chief Complaint: Arrhythmia/Palpitations Stated Complaint: tachy, SOB Time Seen by Provider: 02/28/23 00:49 History of Present Illness: 37-year-old male presents to the emergen cy department with complaints of feeling like his heart was going to beat out of his chest. He states his heart started racing and then he became nauseated with a single episode of vomiting. He states he does have a history of Tycyq-Fofntcsqa-Zftxq and was taking medication for that but has not refilled that prescription in quite some time. He states that he has done well since then until recently. He states his chest discomfort right now is a 0 out of 10, but was initially a 3 out of 10 when he felt like his heart was racing. Associated symptoms: Reports nausea and vomiting Review of Systems 2 General: Reports: 10 or more systems reviewed and unremarkable except in HPI and below Card: Reports: palpitations and irregular heart rhythm GI: Reports: nausea and vomiting PFSH ED 2 PFSH: Medical History No pertinent past medical history Surgical History No pertinent past surgical history Family History Mother Stroke Social History Smoking and tobacco/nicotine status: never used tobacco/nicotine Alcohol intake: current Alcohol intake frequency: few times a week Substance/Drug Use: never Physical Exam 2 Narrative: EXAM NARRATIVE: Constitutional: the patient appears well nourished and with normal development. Vital signs reviewed as documented. HENMT: Normocephalic, atraumatic. Extermal ears with normal appearance without drainage. Nose without drainage, normal appearance. Mucus membranes moist. Neck is supple, No jugular venous distension, trachea is midline, no appreciable carotid bruits. No lymphadenopathy. No meningeal signs. Flexion, extension and lateral rotation is without pain. Eyes: Pupils are equal, round, reactive to light and accommodation. No scleral icterus. Extra-ocular movement are intact. Thorax is symmetrical and with equal rise and fall with respirations. Resp: Lungs are clear to auscultation. No wheezes, rales, crackles or ronchi at present. Cardio: Regular rate and rhythm. Positive S1, S2. No appreciable murmurs, rubs or gallops. GI: Abdominal exam reveals normal bowel sounds to all quadrants. No organomegaly. No obvious palpable masses noted. No hepatomegally appreciated. Soft, nontender to palpation. Extremity: Extremities are non-edematous and both femoral and pedal pulses are 2+ and equal bilaterally. Moves all extremities well, sensation in all extremities. Neuro: Alert and oriented x4, person, place, time and situation. Cranial nerves II through XII are grossly intact, there is no focal neurological deficits that I can appreciate at present. Motor strength in the upper and lower extremities are equal and bilateral 5/5. Psych: Cooperative, calm, normal thought process, appropriate judgment. Skin: No lesions, rashes. No gross abnormalities noted. Back: Symmetrical, no obvious deformity, No CVA tenderness Course 2 Vital Signs: Vital signs: Vital Signs Temperature 97.5 F L 02/28/23 00:52 Pulse Rate 79 02/28/23 02:12 Respiratory Rate 18 02/28/23 02:12 Blood Pressure 163/88 02/28/23 02:12 Pulse Oximetry 96 02/28/23 02:12 Oxygen Delivery Me thod Room Air 02/28/23 01:33 MDM - Arrhythmia/Palpitations Medical Decision Making Physical exam completed and documented, I will obtain a CBC, CMP cardiac enzymes as well as twelve-lead EKG and chest x-ray. I will provide the patient written prescriptions at time of discharge and recommend follow-up with cardiology. Medical Records I reviewed the patient's medical records. Lab Data I reviewed the patient's lab results. 02/28/23 01:03 02/28/23 01:03 Radiology Impressions Chest X-Ray 02/28/23 01:01 IMPRESSION: No acute findings. Laboratory Results WBC 9.02 10^3/uL (3.29-11.43) 02/28/23 01:03 RBC 4.79 10^6/uL (3.85-5.65) 02/28/23 01:03 Hgb 14.60 g/dL (11.27-16.99) 02/28/23 01:03 Hct 41.0 % (37-53) 02/28/23 01:03 MCV 85.6 fl (82-101) 02/28/23 01:03 MCH 30.5 pg (27-33) 02/28/23 01:03 MCHC 35.6 g/dL (30-55) 02/28/23 01:03 RDW 12.5 % (12.1-15.1) 02/28/23 01:03 Plt Count 260 10^3/cmm (157-399) 02/28/23 01:03 MPV 9.4 fL (7.4-10.4) 02/28/23 01:03 Neut % (Auto) 60.0 % 02/28/23 01:03 Lymph % (Auto) 28.5 % 02/28/23 01:03 Crosby % (Auto) 7.9 % 02/28/23 01:03 Eos % (Auto) 2.5 % 02/28/23 01:03 Baso % (Auto) 0.9 % 02/28/23 01:03 Neut # (Auto) 5.41 10^3/uL (1.8-7.7) 02/28/23 01:03 Lymph # (Auto) 2.6 10^3/uL (0.8-4.8) 02/28/23 01:03 Crosby # (Auto) 0.7 10^3/uL (0.2-0.9) 02/28/23 01:03 Eos # (Auto) 0.2 10^3/uL (0.0-0.8) 02/28/23 01:03 Baso # (Auto) 0.1 10^3/uL (0.0-0.1) 02/28/23 01:03 Nucleated RBC % (auto) 0 % 02/28/23 01:03 Nucleated RBCs # 0.0 /100WBC 02/28/23 01:03 Sodium 138 mmol/L (136-145) 02/28/23 01:03 Potassium 3.9 mmol/L (3.5-5.1) 02/28/23 01:03 Chloride 103 mmol/L (98-107) 02/28/23 01:03 Carbon Dioxide 24 mmol/L (22-29) 02/28/23 01:03 Anion Gap 14.9 (5-19) 02/28/23 01:03 BUN 10 mg/dL (6-20) 02/28/23 01:03 Creatinine 0.8 mg/dL (0.7-1.2) 02/28/23 01:03 GFR Calculation 108.8 mL/min (90-130) 02/28/23 01:03 Glucose 120 mg/dL (65-115) H 02/28/23 01:03 Calculated Osmolality 286 mOsm/kg (285-295) 02/28/23 01:03 Calcium 9.5 mg/dL (8.5-10.5) 02/28/23 01:03 Magnesium 1.9 mg/dL (1.7-2.3) 02/28/23 01:03 Total Bilirubin 0.4 mg/dL (0.15-1.2) 02/28/23 01:03 AST 23 U/L (0-40) 02/28/23 01:03 ALT 25 U/L (0-41) 02/28/23 01:03 Alkaline Phosphatase 110 U/L (40-130) 02/28/23 01:03 Troponin T Baseline < 6 ng/L (0-15) 02/28/23 01:03 NT-Pro-B Natriuret Pep < 36 pg/mL (0-125) 02/28/23 01:03 Total Protein 6.6 g/dL (6.6-8.7) 02/28/23 01:03 Albumin 4.4 g/dL (3.5-5.2) 02/28/23 01:03 Globulin 2.2 g/dL (1.3-4.6) 02/28/23 01:03 All radiology interpretation(s) finalized by discharge EKG Data EKG 1: Interpretation: Twelve-lead EKG obtained at 00 51 and reviewed at 00 51 demonstrates underlying sinus rhythm with preexcitation syndrome noted ventricular rate is 86 bpm, LA interval 125 QRS duration 147 QT 373 QTc 417. Other EKG comments: Chest X-Ray 02/28/23 01:01 IMPRESSION: No acute findings. Discharge Plan Discharge Patient Disposition: Home Clinical Impression: Nifjv-Xrwveamvh-Lvopr (WPW) pattern seen on electrocardiography Condition: Stable Prescriptions: New propranolol 40 mg tablet 20 mg PO BID Qty: 60 0RF No Action acetaminophen 500 mg Tablet 500 mg PO Q6H PRN (Reason: Pain) losartan 50 mg Tablet 25 mg PO DAILY Qty: 30 0RF losartan 50 mg tablet 50 mg PO DAILY Qty: 30 0RF triamcinolone acetonide 0.1 % cream 1 applic topical BID Qty: 30 0RF diclofenac sodium 50 mg tablet,delayed release (DR/EC) 50 mg PO Q12H PRN (Reason: pain) Qty: 20 0RF Medrol (Francisco) 4 mg tablets,dose pack See Rx Instructions .ROUTE .COMPLEX Qty: 21 0RF Rx Instructions: orally per package directions losartan 25 mg tablet 25 mg PO DAILY Qty: 30 2RF Discharge Orders: Discharge ED (Routine); Ordered 02/28/23 Ordered By: Robert Engel Referrals: Hailey Tovar MD [Physician] - Discharge Diet: Advance as tolerated Discharge Activity: Resume usual activity Patient Instructions: Opioid Safety, Pain Management Activity Restrictions/Additional Instructions: Activity Restrictions/Additional Instructions: Thank you for choosing [facility] for your healthcare needs today. Please realize that you were seen in the Emergency Department and that we are providing you with an emergency medical screening exam and this may not be a complete and all inclusive of all the testing and or medical work-up that you may need to determine your ailment or severity of your illness. It is very important that you follow-up as instructed with your Primary care provider or Specialist for additional evaluation and to discuss your medical treatment plan. You may return to the Emergency Department should you have concerns or if your condition changes or worsens in any way. Stand Alone Forms: Work/School Release Coding Level of Care Code ED [employer]
--- NOTE | 2023-02-28 01:01 | XRR_ITS ---
PROCEDURE INFORMATION: Exam: XR Chest Exam date and time: 02/28/2023 1:06 AM Age: 37 years old Clinical indication: Other: Palpitations TECHNIQUE: Imaging protocol: Radiologic exam of the chest. Views: 1 view. COMPARISON: CR XR chest 1V portable [id number] 09/12/2022 11:30 PM FINDINGS: Lungs: Unremarkable. No consolidation. Pleural spaces: Unremarkable. No pleural effusion. No pneumothorax. Heart/Mediastinum: Unremarkable. No cardiomegaly. Bones/joints: Unremarkable. XR/XR chest 1V portable [id number] IMPRESSION: No acute findings.
[2023-02-28 01:10] LABS: Basophils # 0.1 10^3/uL (0.0-0.1); Basophils % 0.9 %; Eosinophils # 0.2 10^3/uL (0.0-0.8); Eosinophils % 2.5 %; Lymphocytes # 2.6 10^3/uL (0.8-4.8); Lymphocytes % 28.5 %; Mean Corpuscular HGB Conc 35.6 g/dL (30-55); Mean Corpuscular Hemoglobin 30.5 pg (27-33); Mean Corpuscular Volume 85.6 fl (82-101); Mean Platelet Volume 9.4 fL (7.4-10.4); Monocytes # 0.7 10^3/uL (0.2-0.9); Monocytes % 7.9 %; Neutrophils # 5.41 10^3/uL (1.8-7.7); Nucleated Red Blood Cells % 0 %; Platelet Count 260 10^3/cmm (157-399); Red Blood Count 4.79 10^6/uL (3.85-5.65); Red Cell Distribution Width 12.5 % (12.1-15.1); White Blood Count 9.02 10^3/uL (3.29-11.43)
[2023-02-28 01:29] LABS: Troponin(5th) Baseline < 6 ng/L (0-15)
[2023-02-28 01:33] VITALS: BP 160/92; PULSE 79; RESP 16; O2SAT 99
[2023-02-28 01:40] LABS: Alanine Aminotransferase 25 U/L (0-41); Albumin Level 4.4 g/dL (3.5-5.2); Alkaline Phosphatase 110 U/L (40-130); Aspartate Amino Transferase 23 U/L (0-40); Blood Urea Nitrogen 10 mg/dL (6-20); Calcium 9.5 mg/dL (8.5-10.5); Carbon Dioxide 24 mmol/L (22-29); Chloride 103 mmol/L (98-107); Creatinine Clr Calc Pharmacy 136.6545; Globulin 2.2 g/dL (1.3-4.6); Glomerular Filtration Rate 108.8 mL/min (90-130); Glucose 120 mg/dL (65-115); Magnesium 1.9 mg/dL (1.7-2.3); NT Pro B Type Natriuretic Pept < 36 pg/mL (0-125); Osmolality Calculated 286 mOsm/kg (285-295); Sodium 138 mmol/L (136-145); Total Bilirubin 0.4 mg/dL (0.15-1.2); Total Protein 6.6 g/dL (6.6-8.7)
[2023-02-28 01:46] LABS: Anion Gap 14.9 (5-19); Potassium 3.9 mmol/L (3.5-5.1)
[2023-02-28 02:12] VITALS: BP 163/88; PULSE 79; RESP 18; O2SAT 96
[2023-02-28] MEDS: propranolol 20 mg Tablet 40 MG (02:27)
== END 2023-02-28 02:29 | disposition home or self-care (01) ==
PROVIDERS: Emergency Provider Internal Medicine
DX: I45.6 Pre-excitation syndrome (principal)
CPT/HCPCS: 71045; 80053; 83735; 83880; 84484; 85025; 93005; 99285

== ENCOUNTER 2023-12-08 10:24 | Emergency (ER) | payer OTHER, SELFPAY ==
[2023-12-08 10:41] VITALS: BP 127/84; PULSE 89; RESP 18; TEMP 36.6; O2SAT 96; BMI 28.1
--- NOTE | 2023-12-08 10:53 | XRR_ITS ---
PROCEDURE INFORMATION: Exam: XR Right Hand Exam date and time: 12/08/2023 11:08 AM Age: 38 years old Clinical indication: Injury or trauma; Other: Smashed in car door; Crushing; Hand; Right; Additional info: Slammed thumb and hand in door yest TECHNIQUE: Imaging protocol: Radiologic exam of the right hand. Views: 3 or more views. COMPARISON: No relevant prior studies available. FINDINGS: Bones/joints: Normal. Soft tissues: Normal. XR/XR hand RT min 3V* [id number] IMPRESSION: No acute findings.
--- NOTE | 2023-12-08 11:08 | ED_ITS ---
HPI - Extremity Problem General: Chief complaint: Extremity Injury, Upper Stated complaint: right hand thumb injury Time Seen by Provider: 12/08/23 10:53 History of Present Illness: Patient presents to the ER with complaints of right thumb pain. He says he showed his hand in a car door last night and the base of his right thumb has a dull ache and bruising and swelling. Related Data Home Medications Medication Instructions Recorded Confirmed acetaminophen 500 mg tablet 500 mg PO Q6H PRN Pain 04/07/21 04/07/21 Previous Rx's Medication Instructions Recorded losartan 50 mg tablet 25 mg (1/2 x 50 mg) PO DAILY #30 04/08/21 tabs diclofenac sodium 50 mg 50 mg PO Q12H PRN pain #20 tabs 06/05/21 tablet,delayed release methylprednisolone 4 mg tablets in See Rx Instructions PO .COMPLEX 06/05/21 a dose pack (Medrol (Francisco)) #21 ea losartan 50 mg tablet 50 mg PO DAILY #30 tabs 03/03/22 triamcinolone acetonide 0.1 % 1 applic topical BID #30 grams 05/19/22 topical cream losartan 25 mg tablet 25 mg PO DAILY #30 tabs 09/13/22 propranolol 40 mg tablet 20 mg (1/2 x 40 mg) PO BID #60 tabs 02/28/23 Allergies Allergy/AdvReac Type Severity Reaction Status Date / Time No Known Allergies Allergy Verified 09/12/22 23:18 Review of Systems General: Reports: 10 or more systems reviewed and unremarkable except in HPI and below PFSH ED PFSH: Medical History No pertinent past medical history Surgical History No pertinent past surgical history Family History Mother Stroke Social History Smoking and tobacco/nicotine status: never used tobacco/nicotine Alcohol intake: current Alcohol intake frequency: few times a week Substance/Drug Use: never Physical Exam Const: COMMON NORMALS: no acute distress, average body habitus, patient oriented x3, no limitations, healthy appearing, alert and well nourished HENMT: COMMON NORMALS: normocephalic, atraumatic, hearing grossly normal bilaterally, external ears normal and moist oral mucous membranes HEAD & SCALP: normocephalic and atraumatic EXTERNAL EAR: Yes external ears normal Neck/C-Spine: COMMON NORMALS: full ROM, no lymphadenopathy, supple, no meningeal signs, no JVD and Thyroid normal THYROID: Thyroid normal Chest: COMMONS NORMALS: normal inspection of the chest and normal palpation of entire chest wall Resp: COMMON NORMALS: normal respiratory effort, No retractions, No use of accessory muscles and clear to auscultation bilaterally AUSCULTATION: clear to auscultation bilaterally Cardio: COMMON NORMALS: no JVD, regular rate, regular rhythm, S1 normal heart sound present, S2 normal heart sound present, No gallops present (Cardio), No clicks present (Cardio) and No murmurs present (Cardio) RATE: regular rate RHYTHM: regular rhythm HEART SOUNDS: S1 normal heart sound present and S2 normal heart sound present GI: COMMON NORMALS: Normal to inspection, nondistended, normoactive bowel sounds present, Soft to palpation, non-tender, No hepatosplenomegaly present and no masses PALPATION: Yes Soft to palpation and Yes No hepatosplenomegaly present Extremity: NARRATIVE EXTREMITY EXAM: Swelling and tenderness over the base of the right thumb. Decreased range of motion at extremes secondary to pain no crepitus or deformity noted. Neuro: COMMON NORMALS: patient oriented x3 SENSORIUM/ORIENTATION: Yes alert MENINGEAL SIGNS: Yes no meningeal signs Course Vital Signs: Vital signs: Vital Signs Temperature 97.9 F 12/08/23 10:41 Pulse Rate 89 12/08/23 10:41 Respiratory Rate 18 12/08/23 10:41 Blood Pressure 127/84 12/08/23 10:41 Pulse Oximetry 96 12/08/23 10:41 Oxygen Delivery Me thod Room Air 12/08/23 10:41 MDM - Extremity (Nontraumatic) Medical Decision Making X-ray is read by the radiologist as negative, patient be placed in an Gary wrap and discharged and allowed to go back to work. Patient to follow-up with his PCP in approximate 7 days. Medical Records I reviewed the patient's medical records. Lab Data I reviewed the patient's lab results. Radiology Impressions Hand X-Ray 12/08/23 10:53 IMPRESSION: No acute findings. All radiology interpretation(s) finalized by discharge Discharge Plan Discharge Patient Disposition: Home Clinical Impression: Contusion of hand Qualifiers: Encounter type: initial encounter Laterality: right Qualified Code(s): S60.221A - Contusion of right hand, initial encounter Condition: Stable Prescriptions: No Action acetaminophen 500 mg Tablet 500 mg PO Q6H PRN (Reason: Pain) losartan 50 mg Tablet 25 mg PO DAILY Qty: 30 0RF losartan 50 mg tablet 50 mg PO DAILY Qty: 30 0RF triamcinolone acetonide 0.1 % cream 1 applic topical BID Qty: 30 0RF diclofenac sodium 50 mg tablet,delayed release (DR/EC) 50 mg PO Q12H PRN (Reason: pain) Qty: 20 0RF Medrol (Francisco) 4 mg tablets,dose pack See Rx Instructions .ROUTE .COMPLEX Qty: 21 0RF Rx Instructions: orally per package directions losartan 25 mg tablet 25 mg PO DAILY Qty: 30 2RF propranolol 40 mg tablet 20 mg PO BID Qty: 60 0RF Discharge Orders: Discharge ED (Routine); Ordered 12/08/23 Ordered By: Terrell Gannon Patient Instructions: Contusion in Adults (ED) Activity Restrictions/Additional Instructions: Your x-ray was read by the radiologist as no acute fracture, you have suffered a contusion or deep bruise. Please continue take [id number] Tylenol and/or Motrin as needed for pain please continue to wrap your hand wrist as needed. Please follow-up with your family practice physician within next 7 to 10 days for further evaluation and treatment as needed. Coding Level of Care Code ED [employer] [place]
[2023-12-08 12:46] VITALS: BP 123/79; PULSE 79; O2SAT 99
== END 2023-12-08 12:48 | disposition home or self-care (01) ==
PROVIDERS: Emergency Provider Emergency Medicine
DX: S60.221A Contusion of right hand, initial encounter (principal); W23.0XXA Caught, crushed, jammed, or pinched between moving objects, initial encounter
CPT/HCPCS: 73130; 99283

== ENCOUNTER 2025-02-25 23:11 | Emergency (ER) | payer OTHER, SELFPAY ==
[2025-02-25 23:17] VITALS: BP 121/81; PULSE 83; RESP 16; TEMP 36.4; O2SAT 99; BMI 28.8
--- NOTE | 2025-02-25 23:17 | ECG_ITS ---
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1985 Requested By: Jennifer Bennett Order Number: [id number] Lety MD: MURRAY NOGUERA Measurements Intervals [place] Rate: 85 P: 39 NV: 173 QRS: -13 QRSD: 89 T: 1 QT: 350 QTc: 417 Interpretive Statements SINUS RHYTHM POSSIBLE RIGHT VENTRICULAR CONDUCTION DELAY [RSR (QR) IN V1/V2] MODERATE VOLTAGE CRITERIA FOR LVH, CONSIDER NORMAL VARIANT [MEETS CRITERIA IN ONE OF: R(aVL), S(V1), R(V5), R(V5/V6)+S(V1)] Compared to ECG 02/28/2023 00:51:06 Ventricular preexcitation no longer present Electronically Signed On 02-26-2025 18:30:21 TATTOO DESIGNER by MURRAY NOGUERA [email or web address]
--- NOTE | 2025-02-25 23:17 | XRR_ITS ---
PROCEDURE INFORMATION: Exam: XR Chest Exam date and time: 02/25/2025 11:22 PM Age: 39 years old Clinical indication: Pain; Angina pectoris; Additional info: Chest pain TECHNIQUE: Imaging protocol: Radiologic exam of the chest. Views: 1 view. COMPARISON: CR XR chest 1V portable [id number] 02/28/2023 1:06 AM FINDINGS: Lungs: Unremarkable. No consolidation. Pleural spaces: Unremarkable. No pleural effusion. No pneumothorax. Heart/Mediastinum: Unremarkable. No cardiomegaly. Bones/joints: Unremarkable. XR/XR chest 1V portable [id number] IMPRESSION: No acute findings.
[2025-02-25 23:47] LABS: Hematocrit 42.4 % (37-53); Hemoglobin 15.00 g/dL (11.27-16.99); Mean Corpuscular HGB Conc 35.4 g/dL (30-55); Mean Corpuscular Hemoglobin 30.1 pg (27-33); Mean Corpuscular Volume 85.1 fl (82-101); Nucleated Red Blood Cells % 0 %; Platelet Count 285 10^3/cmm (157-399); Red Blood Count 4.98 10^6/uL (3.85-5.65); White Blood Count 9.67 10^3/uL (3.29-11.43)
[2025-02-26 00:30] LABS: Troponin(5th) Baseline < 6 ng/L (0-15)
[2025-02-26 00:32] LABS: Alanine Aminotransferase 19 U/L (0-41); Albumin Level 4.7 g/dL (3.5-5.2); Alkaline Phosphatase 112 U/L (40-130); Aspartate Amino Transferase 19 U/L (0-40); Blood Urea Nitrogen 10 mg/dL (6-20); Calcium 9.4 mg/dL (8.5-10.5); Carbon Dioxide 26 mmol/L (22-29); Chloride 105 mmol/L (98-107); Globulin 2.4 g/dL (1.3-4.6); Glucose 130 mg/dL (65-115); Osmolality Calculated 295 mOsm/kg (285-295); Sodium 142 mmol/L (136-145); Total Protein 7.1 g/dL (6.6-8.7)
[2025-02-26 00:34] LABS: Anion Gap 15.0 (5-19); Potassium 4.0 mmol/L (3.5-5.1)
[2025-02-26 01:19] VITALS: BP 127/73; PULSE 78; RESP 18; O2SAT 95
[2025-02-26 01:30] VITALS: BP 109/67; PULSE 72; RESP 15; O2SAT 95
--- NOTE | 2025-02-26 02:05 | W.ED.CHESTPA ---
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 Patient states it started with a tingling sensation in his hands and chest. This was followed by a few seconds of sharp and stabbing retrosternal chest pain. It has now resolved and patient is chest pain-free on my exam. Patient has not had a fever, cough, hemoptysis, pain with deep breathing, syncope, lower extremity swelling or asymmetry. No diaphoresis, nausea, vomiting or abdominal pain. No change in bowel habits, no dysuria or hematuria. Patient states that he does not use illicit drugs, tobacco, marijuana but does drink caffeine. Patient does not drink energy drinks. He states he was supposed to have an ablation for WPW but never followed through with that plan. Related Data Home Medications ?Medication ?Instructions ?Recorded ?Confirmed acetaminophen 500 mg tablet 500 mg PO Q6H PRN Pain 04/07/21 04/07/21 Previous Rx's ?Medication ?Instructions ?Recorded losartan 50 mg tablet 25 mg (1/2 x 50 mg) PO DAILY #30 04/08/21 tabs diclofenac sodium 50 mg 50 mg PO Q12H PRN pain #20 tabs 06/05/21 tablet,delayed release methylprednisolone 4 mg tablets in See Rx Instructions PO .COMPLEX 06/05/21 a dose pack (Medrol (Francisco)) #21 ea losartan 50 mg tablet 50 mg PO DAILY #30 tabs 03/03/22 triamcinolone acetonide 0.1 % 1 applic topical BID #30 grams 05/19/22 topical cream losartan 25 mg tablet 25 mg PO DAILY #30 tabs 09/13/22 propranolol 40 mg tablet 20 mg (1/2 x 40 mg) PO BID #60 tabs 02/28/23 Allergies Allergy/AdvReac Type Severity Reaction Status Date / Time No Known Allergies Allergy Verified 02/25/25 23:20 [facility] ED PFS: Medical History (Updated 02/26/25 @ 02:49 by Jennifer Bennett MD) No pertinent past medical history Surgical History No pertinent past surgical history Family History Mother Stroke Social History Smoking and tobacco/nicotine status: never used tobacco/nicotine Alcohol intake: current Alcohol intake frequency: few times a week Substance/Drug Use: never Physical Exam Narrative: EXAM NARRATIVE: Vital signs were reviewed. Patient is alert and oriented. Patient is breathing comfortably, no increased WOB or accessory muscle use. SpO2 is above 95% on RA. Patient has clear lungs b/l, no rhonchi, wheezing or crackles. No hypotension or tachycardia. Abdomen is soft, nondistended and nontender. Patient is moving all extremities, no deformity or gross injury. No lower extremity edema or asymmetry. Course Vital Signs: Vital signs: Vital Signs Temperature 97.5 F L 02/25/25 23:17 Pulse Rate 72 02/26/25 01:30 Respiratory Rate 15 02/26/25 01:30 Blood Pressure 109/67 02/26/25 01:30 Pulse Oximetry 95 02/26/25 01:30 Oxygen Delivery Me thod Room Air 02/25/25 23:17 MDM - Chest Pain Medical Decision Making Patient is a 39-year-old male presenting with a chief complaint of episode of sharp, stabbing pain, nonexertional, nonradiating, associated with tingling in his hands, now resolved. Discomfort and symptoms lasted for few seconds. Differential diagnosis includes but is limited to, WPW, cardiac arrhythmia, palpitations, viral upper respiratory infection, pneumonia, bronchitis, PE, ACS, myocarditis, pericarditis, other. Initial exam using a close stable, nontoxic-appearing and is asymptomatic. EKG does not demonstrate a STEMI. Patient was evaluate CBC, CMP, troponin, EKG and chest x-ray. Patient has a normal white blood cell count and is not anemic. Patient does not have any actionable electrolyte abnormalities. Patient has a normal baseline troponin negative delta. Clinically, I have a low suspicion for PE given that patient is asymptomatic, has no shortness of breath, hemoptysis, leg swelling, previous history of DVT or PE and does not have hypoxia or increased work of breathing. At this time patient is appropriate for discharge and outpatient follow-up. Patient is agreeable with this plan. Patient was counseled on supportive care at home, given return precautions and discharged in stable condition with recommendation for outpatient follow-up with primary care nurse or doctor. Lab Data 02/25/25 23:34 02/25/25 23:34 Radiology Impressions Chest X-Ray 02/25/25 23:17 IMPRESSION: No acute findings. Laboratory Results WBC 9.67 10^3/uL (3.29-11.43) 02/25/25 23:34 RBC 4.98 10^6/uL (3.85-5.65) 02/25/25 23:34 Hgb 15.00 g/dL (11.27-16.99) 02/25/25 23:34 Hct 42.4 % (37-53) 02/25/25 23:34 MCV 85.1 fl (82-101) 02/25/25 23:34 MCH 30.1 pg (27-33) 02/25/25 23:34 MCHC 35.4 g/dL (30-55) 02/25/25 23:34 RDW 12.6 % (12.1-15.1) 02/25/25 23:34 Plt Count 285 10^3/cmm (157-399) 02/25/25 23:34 MPV 9.9 fL (7.4-10.4) 02/25/25 23:34 Neut % (Auto) 59.0 % 02/25/25 23:34 Lymph % (Auto) 28.7 % 02/25/25 23:34 Falls % (Auto) 7.1 % 02/25/25 23:34 Eos % (Auto) 4.0 % 02/25/25 23:34 Baso % (Auto) 1.0 % 02/25/25 23:34 Neut # (Auto) 5.69 10^3/uL (1.8-7.7) 02/25/25 23:34 Lymph # (Auto) 2.8 10^3/uL (0.8-4.8) 02/25/25 23:34 Falls # (Auto) 0.7 10^3/uL (0.2-0.9) 02/25/25 23:34 Eos # (Auto) 0.4 10^3/uL (0.0-0.8) 02/25/25 23:34 Baso # (Auto) 0.1 10^3/uL (0.0-0.1) 02/25/25 23:34 Nucleated RBC % (auto) 0 % 02/25/25 23:34 Nucleated RBCs # 0.0 /100WBC 02/25/25 23:34 Sodium 142 mmol/L (136-145) 02/25/25 23:34 Potassium 4.0 mmol/L (3.5-5.1) 02/25/25 23:34 Chloride 105 mmol/L (98-107) 02/25/25 23:34 Carbon Dioxide 26 mmol/L (22-29) 02/25/25 23:34 Anion Gap 15.0 (5-19) 02/25/25 23:34 BUN 10 mg/dL (6-20) 02/25/25 23:34 Creatinine 0.9 mg/dL (0.7-1.2) 02/25/25 23:34 GFR Calculation 93.9 mL/min (90-130) 02/25/25 23:34 Glucose 130 mg/dL (65-115) H 02/25/25 23:34 Calculated Osmolality 295 mOsm/kg (285-295) 02/25/25 23:34 Calcium 9.4 mg/dL (8.5-10.5) 02/25/25 23:34 Total Bilirubin 0.4 mg/dL (0.15-1.2) 02/25/25 23:34 AST 19 U/L (0-40) 02/25/25 23:34 ALT 19 U/L (0-41) 02/25/25 23:34 Alkaline Phosphatase 112 U/L (40-130) 02/25/25 23:34 Troponin T Baseline < 6 ng/L (0-15) 02/25/25 23:34 Troponin T 60 Minute < 6.0 ng/L (0-15) 02/26/25 00:31 Delta Troponin T 0 ABS# (0-10) 02/26/25 00:31 Total Protein 7.1 g/dL (6.6-8.7) 02/25/25 23:34 Albumin 4.7 g/dL (3.5-5.2) 02/25/25 23:34 Globulin 2.4 g/dL (1.3-4.6) 02/25/25 23:34 No radiology studies performed this visit EKG Data EKG 1: Interpretation: Sinus rhythm, heart rate of 85, left axis deviation, narrow complex, normal QT/QTc, no STEMI, may meet LVH criteria. Discharge Plan Discharge Patient Disposition: Home Clinical Impression: Non-cardiac chest pain, Heart palpitations, History of Hqytp-Lobuqtsha-Bvvnz (WPW) syndrome Condition: Stable Prescriptions: No Action acetaminophen 500 mg Tablet 500 mg PO Q6H PRN (Reason: Pain) losartan 50 mg Tablet 25 mg PO DAILY Qty: 30 0RF losartan 50 mg tablet 50 mg PO DAILY Qty: 30 0RF triamcinolone acetonide 0.1 % cream 1 applic topical BID Qty: 30 0RF diclofenac sodium 50 mg tablet,delayed release (DR/EC) 50 mg PO Q12H PRN (Reason: pain) Qty: 20 0RF Medrol (Francisco) 4 mg tablets,dose pack See Rx Instructions .ROUTE .COMPLEX Qty: 21 0RF Rx Instructions: orally per package directions losartan 25 mg tablet 25 mg PO DAILY Qty: 30 2RF propranolol 40 mg tablet 20 mg PO BID Qty: 60 0RF Discharge Orders: Discharge ED (Routine); Ordered 02/26/25 Ordered By: Jennifer Bennett Patient Instructions: Opioid Safety, Pain Management, Patient Portal & Thea Instructions, Heart Palpitations, Chest Pain (DC), Kvglk-Psezwzrfg-Vturb Syndrome (ED) Activity Restrictions/Additional Instructions: Please continue to monitor your condition closely at home. Take Ibuprofen 400mg and Tylenol 500-1000mg every six hours for pain and inflammation. If your condition worsens or additional concerns arise, please return promptly to the emergency department for reassessment. Follow up with your primary care doctor in one week. It is also recommended that you follow-up with your admission specialist to discuss an ablation for WPW. Please limit energy drinks, caffeine, alcohol and tobacco. Print Language: Yi Coding Level of Care Code ED [employer] Leader for Chg Fwd Heart Score HEART Score Components History: Slightly Suspicous EKG: Normal Age: Less than 45 yrs Risk Factors: No Risk Factors Known Troponin: Baseline Trop <16 ng/L HEART Score RESULT HEART Score: 0
== END 2025-02-26 02:57 | disposition home or self-care (01) ==
PROVIDERS: Emergency Provider Emergency Medicine
DX: R07.89 Other chest pain (principal); R00.2 Palpitations; I45.6 Pre-excitation syndrome
CPT/HCPCS: 36415; 71045; 80053; 84484; 85025; 93005; 99285